=== PATIENT | male | born 1960 | race Caucasian/White ===

== ENCOUNTER 2021-09-06 19:00 | Observation (INO) | payer OTHER, SELFPAY ==
[2021-09-06] VITALS (12 sets, daily range): BP systolic 103–145; BP diastolic 79–85; PULSE 57–98; RESP 10–23; TEMP 36.7–37.2; O2SAT 94–98; BMI 29.7
--- NOTE | ~2021-09-06 | XR_ITS ---
EXAMINATION: XR chest 1V portable INDICATION: Midsternal chest pain TECHNIQUE: Portable AP chest at 1915 hours COMPARISON: 04/18/2005 FINDINGS: Cardiomegaly is noted. There are minimal airspace opacities of the lung bases. No pleural e ffusion or pneumothorax. Median sternotomy wires and mediastinal surgical clips are seen, likely from prior coronary artery bypass grafting. IMPRESSION: 1. Cardiomegaly. 2. Minimal airspace opacities of the lung bases, consistent with atelectasis versus pneumonia versus pulmonary edema. Reviewed, dictated and finalized at location F. IMPRESSION: 1. Cardiomegaly. 2. Minimal airspace opacities of the lung bases, consistent with atelectasis ve rsus pneumonia versus pulmonary edema.
--- NOTE | 2021-09-06 19:09 | ECG_ITS ---
Measurements Intervals [place] Rate: 84 P: MA: 0 QRS: -40 QRSD: 160 T: 132 QT: 379 QTc: 450 Interpretive Statements ATRIAL FIBRILLATION MARKED LEFT AXIS DEVIATION [QRS AXIS < -30] LEFT BUNDLE BRANCH BLOCK [120+ ms QRS DURATION, 80+ ms Q/S IN V1/V2, 85+ ms R IN I/aVL/V5/V6] NO PREVIOUS ECG AVAILABLE FOR COMPARISON Electronically Signed On 09-07-2021 7:51:09 CDT by Chuck Jefferson M.D.
[2021-09-06 19:39] LABS: Basophils Absolute Auto 0.1 K/mm3 (0.0-0.1); Basophils Percent Auto 0.6 % (0.2-1.2); Eosinophils Absolute Auto 0.3 K/mm3 (0-0.3); Eosinophils Percent Auto 3.2 % (0-4.4); Hematocrit 50.7 % (42.0-52.0); Hemoglobin 16.6 g/dL (14.0-18.0); Immature Granulocyte Absolute 0.03 K/mm3 (0.00-0.031); Immature Granulocyte Percent A 0.4 % (0-0.5); Lymphocytes Absolute Auto 2.12 K/mm3 (0.9-3.2); Mean Corpuscular HGB Conc 32.7 g/dl (32-36); Mean Corpuscular Hemoglobin 29.9 pg (26-34); Mean Corpuscular Volume 91.4 fl (80-100); Mean Platelet Volume 9.9 fl (7.4-10.4); Monocytes Absolute Auto 0.7 K/mm3 (0.1-0.6); Monocytes Percent Auto 9.4 % (2.6-8.5); Neutrophils Absolute Auto 4.7 K/mm3 (1.3-6.7); Neutrophils Percent Auto 59.4 % (45.5-73.1); Platelet Count Result 203 k/mm3 (150-375); Red Blood Count 5.55 M/mm3 (4.6-6.20); Red Cell Distribution Width 13.7 % (11.5-14.5); White Blood Count 7.8 K/mm3 (4.5-10.0)
[2021-09-06 19:49] LABS: INR 1.3; Prothrombin Time 15.3 Seconds (11.1-14.7)
--- NOTE | 2021-09-06 19:56 | ED.CHESTPAIN ---
HPI - Chest Pain General Chief Complaint: Chest Pain Stated Complaint: shortness of breath and chest discomfort Time Seen by Provider: 09/06/21 19:08 Source: RN notes reviewed History of Present Illness HPI narrative: Patient presents emergency department from home for chest pain. Patient states he has had pain over the anterior chest that began yesterday afternoon pain is located just to the right of the sternum and described as a pressure nature he states makes him feel mildly short of breath makes him feel like he cannot take a deep breath. He states nothing makes the pain better or worse he denies any fevers or chills abdominal pain nausea vomiting or any other symptoms. Patient does state he has a history of a CABG in 2014 he states he follows regularly with cardiology at [facility] has not had a cath since that time. States he has a history of being in A. fib in the past and is on Xarelto but states he is not normally in atrial fibrillation Related Data Allergies Allergy/AdvReac Type Severity Reaction Status Date / Time No Known Drug Allergies Allergy Unknown Other Unverified 09/06/21 19:27 Review of Systems Review of Systems: Gen.: Denies fevers or chills ENT: Denies congestion Respiratory: Reports shortness of breath CV: Reports chest pain GI: Denies abdominal pain nausea, emesis or diarrhea Musculoskeletal: Denies back pain or muscle pain Neuro: Denies numbness, tingling, weakness or focal weakness Skin: Denies rash Except as documented, all other systems reviewed and negative [facility] Past Medical History Medical History (Updated 09/06/21 @ 21:22 by Checo Nicholas DO) Atrial fibrillation Coronary artery disease Surgical History Surgical History (Updated 09/06/21 @ 21:20 by Checo Nicholas DO) Hx of CABG Social History Social History (Updated 09/06/21 @ 21:20 by Checo Nicholas DO) Smoking status: Never smoker Exam Narrative: APPEARANCE: No acute distress, nontoxic, resting in bed EYES: EOMI HEENT: Normocephalic, atraumatic, OMM RESPIRATORY: No respiratory distress Clear to auscultation bilaterally with no rhonchi wheezing or rales. CARDIOVASCULAR: Irregular irregular without murmurs rubs or gallops. ABDOMINAL: Soft, nontender, nondistended, no rebound or guarding MUSCULOSKELETAl: Moves all extremities. No clubbing, cyanosis or edema. NEURO: Awake and alert. Following commands, speech normal, no focal deficits SKIN:: Warm, dry. No rashes lesions or abrasions PSYCHIATRIC: Normal affect/mood, Course Course Emergency Course: Patient states pain is improved at this time. Discussed with Dr. Vazquez presentation work-up agrees with plan for admission at this time. Discussed the patient's history and is a patient is normally followed by cardiology at [place] plans for serial troponins rule out but does not feel cardiology consult is necessary at this time Discussed with patient and family results of workup and diagnosis. Discussed need for admission. Patient and family understand and agree to current treatment plan Vital Signs Vital signs: Vital Signs Temperature 98.9 F 09/06/21 19:04 Pulse Rate 88 09/06/21 19:04 Respiratory Rate 20 09/06/21 19:04 Blood Pressure 145/85 H 09/06/21 19:04 Pulse Oximetry 98 09/06/21 19:04 Temperature 98.9 F 09/06/21 19:04 Pulse Rate 91 09/06/21 21:07 Respiratory Rate 11 L 09/06/21 20:47 Blood Pressure 103/85 09/06/21 20:46 Pulse Oximetry 96 09/06/21 20:47 MDM - Chest Pain Lab Data Result diagrams: 09/06/21 19:29 09/06/21 19:29 Labs: Lab Results 09/06/21 09/06/21 09/06/21 Range/Units 19:29 19:29 19:29 WBC 7.8 (4.5-10.0) K/mm3 RBC 5.55 (4.6-6.20) M/mm3 Hgb 16.6 (14.0-18.0) g/dL Hct 50.7 (42.0-52.0) % MCV 91.4 (80-100) fl MCH 29.9 (26-34) pg MCHC 32.7 (32-36) g/dl RDW 13.7 (11.5-14.5) % Plt Count 203 (150-375) k/mm3 MPV 9.9
[2021-09-06 20:47] LABS: Alanine Aminotransferase 47 U/L (6-50); Albumin Level 4.6 g/dL (3.5-5.1); Alkaline Phosphatase 63 U/L (38-126); Anion Gap 8 mmol/L (8-16); Aspartate Amino Transferase 33 U/L (17-59); Bilirubin,Total 0.6 mg/dL (0.2-1.3); Blood Urea Nitrogen 20 mg/dL (9-20); Calcium 8.8 mg/dL (8.4-10.2); Carbon Dioxide 29 mmol/L (22-30); Chloride 103 mmol/L (98-107); Estimated CRCL calculation 86 ml/min; Estimated Glomerular Filt Rate > 60; Glucose 151 mg/dL (65-110); Lipase 63 U/L (23-300); Sodium 140 mmol/L (137-145)
[2021-09-06 20:58] LABS: NT Pro B Type Natriuretic Pept 852 pg/mL (5-100); Troponin I < 0.012 ng/mL (0.000-0.034)
--- NOTE | 2021-09-06 21:18 | PM.IMHP ---
H&P: HPI History of Present Illness Date/Time: 09/06/21 21:18 Chief Complaint: Shortness of breath Narrative: This is a 61-year-old male with past medical history significant for aortic valve replacement for bioprosthetic valve, hypertension, atrial fibrillation. Patient presents to the emergency room due to fatigue, shortness of breath, has been his usual state of health up until these denies any PND, orthopnea, leg swelling, no palpitations, no dizziness, no lightheadedness, no syncope, no near syncope, no nausea, no vomiting, no diarrhea, no cough, no sputum production. Preliminary workup was significant for atrial fibrillation, according to patient he had been on sinus rhythm. Has been admitted for further evaluation, management and treatment. Review of Systems Review of Systems: Fatigue, shortness of breath. Constitutional: Constitutional: Denies chills, Reports fatigue, Denies fever(s), Reports lethargy, Denies night sweats and Denies weakness Eyes: Eyes: Denies change in vision ENT: Denies dysphagia, Denies vertigo, Denies dizziness, Denies nasal congestion, Denies nasal discharge, Denies neck pain, Denies odynophagia and Denies disequilibrium Cardiovascular: Cardiovascular: Reports chest pain, Denies syncope, Denies pedal edema, Denies irregular heart rhythm, Denies claudication, Denies lightheadedness, Denies radiating jaw, neck or arm pain, Denies palpitations, Reports dyspnea and Reports dyspnea on exertion Respiratory: Respiratory: Denies cough and Denies excessive phlegm production Gastrointestinal: Gastrointestinal: Denies abdominal pain, Denies dyspepsia, Denies heartburn, Denies diarrhea and Denies loose stools Genitourinary: Genitourinary: Denies dysuria Musculoskeletal: Musculoskeletal: Denies back pain and Denies joint swelling Integumentary/Breasts: Skin/Breast: Denies rash Psychiatric: Psychiatric: Reports no additional psychiatric complaints and Reports as per HPI Endocrine: Endocrine: Denies cold intolerance, Denies excessive sweating, Reports fatigue, Denies flushing, Denies heat intolerance, Denies polyphagia, Denies polydipsia and Denies palpitations PMFSH Past Medical History Medical History (Updated 09/06/21 @ 21:22 by Checo Nicholas DO) Atrial fibrillation Coronary artery disease Surgical History Surgical History (Updated 09/07/21 @ 03:17 by Demetris Rea MD) Hx of CABG Family History Family History (Updated 09/06/21 @ 22:48 by Audrey Sharma, RN) Sibling Acute myocardial infarction Lung cancer Coronary atherosclerosis of artery bypass graft Father History of blood clots Cerebrovascular accident Coronary atherosclerosis of artery bypass graft Mother Leukemia Social History Social History (Updated 09/06/21 @ 21:20 by Checo Nicholas DO) Smoking status: Former smoker Tobacco type: cigars Second hand tobacco smoke exposure: Yes Alcohol intake: former Substance use: never Spiritual care concerns: Yes (confucianist) Meds Home Medications and Allergies Home Medications Medication Instructions Recorded Confirmed Type amlodipine 10 mg tablet 1 tablet PO DAILY 09/06/21 09/06/21 History atenolol 50 mg tablet 1 tablet PO DAILY 09/06/21 09/06/21 History atorvastatin 80 mg tablet 1 tablet PO DAILY 09/06/21 09/06/21 History fenofibrate micronized 200 mg 1 cap PO DAILY 09/06/21 09/06/21 History capsule hydrocodone 10 mg-acetaminophen 1 tablet PO Q6H PRN Pain (Scale 09/06/21 09/06/21 History 325 mg tablet Score 7-10) rivaroxaban 20 mg tablet (Xarelto) 1 tablet PO DAILY 09/06/21 09/06/21 History testosterone cypionate 200 mg/mL 200 mg IM MONTHLY 09/06/21 09/06/21 History intramuscular oil vortioxetine 20 mg tablet 1 tablet PO DAILY 09/06/21 09/06/21 History (Trintellix) zolpidem 10 mg tablet 0.5 - 1 tablet PO HS PRN Sleep 09/06/21 09/06/21 History Allergies Allergy/AdvReac Type Severity Reaction Status Date / Time No Known Drug
--- NOTE | 2021-09-06 22:40 | PC.NURSE ---
This patient, Adrian Bustillos, was admitted to IMU Room 202-01 in 09/06/212231. Patient/family oriented to hospital policies and general routines including ID bracelet, bed and alarms, visiting hours, pain management, procedures, bathroom and other care routines, personal items, smoking policy, room service/diet, and visiting hours. Information on how to activate the Rapid Response Team has been discussed. Patient/Family are encouraged to report perceived risks to care and to ask questions if they do not understand what they are told or what they should do.
[2021-09-06 23:44] LABS: Troponin I < 0.012 ng/mL (0.000-0.034)
[2021-09-07] VITALS (8 sets, daily range): BP systolic 103–125; BP diastolic 60–86; PULSE 78–90; RESP 16–18; TEMP 36.4–36.7; O2SAT 97–98
[2021-09-07] MEDS: HYDROcodone/acetaminophen (*CRX) 10-325 MG TABLET 1 TAB PO (00:43)
[2021-09-07] MEDS: ZOLPIDEM TARTRATE (*CRX) 5 MG TABLET 10 MG PO (00:43)
[2021-09-07 02:00] LABS: Troponin I < 0.012 ng/mL (0.000-0.034)
[2021-09-07 05:20] LABS: Basophils Percent Auto 0.4 % (0.2-1.2); Eosinophils Absolute Auto 0.2 K/mm3 (0-0.3); Eosinophils Percent Auto 3.1 % (0-4.4); Hematocrit 49.8 % (42.0-52.0); Hemoglobin 16.2 g/dL (14.0-18.0); Immature Granulocyte Absolute 0.03 K/mm3 (0.00-0.031); Immature Granulocyte Percent A 0.4 % (0-0.5); Lymphocytes Absolute Auto 2.07 K/mm3 (0.9-3.2); Lymphocytes Percent Auto 27.6 % (18.3-44.2); Mean Corpuscular HGB Conc 32.5 g/dl (32-36); Mean Corpuscular Hemoglobin 30.1 pg (26-34); Mean Corpuscular Volume 92.4 fl (80-100); Mean Platelet Volume 9.9 fl (7.4-10.4); Monocytes Absolute Auto 0.7 K/mm3 (0.1-0.6); Monocytes Percent Auto 9.5 % (2.6-8.5); Neutrophils Absolute Auto 4.4 K/mm3 (1.3-6.7); Platelet Count Result 186 k/mm3 (150-375); Red Blood Count 5.39 M/mm3 (4.6-6.20); Red Cell Distribution Width 13.7 % (11.5-14.5); White Blood Count 7.5 K/mm3 (4.5-10.0)
[2021-09-07 05:27] LABS: Anion Gap 7 mmol/L (8-16); Blood Urea Nitrogen 20 mg/dL (9-20); Calcium 8.6 mg/dL (8.4-10.2); Carbon Dioxide 26 mmol/L (22-30); Chloride 107 mmol/L (98-107); Estimated CRCL calculation 82 ml/min; Estimated Glomerular Filt Rate > 60; Glucose 100 mg/dL (65-110); Potassium 4.1 mmol/L (3.4-5.0); Sodium 140 mmol/L (137-145)
[2021-09-07] MEDS: amLODIPine BESYLATE 5 MG TABLET 10 MG PO (09:23)
[2021-09-07] MEDS: ATORVASTATIN 40 MG TABLET 80 MG PO (09:23)
[2021-09-07] MEDS: atenoloL 50 MG TABLET PO (09:23)
--- NOTE | 2021-09-07 12:07 | PM.CNCAR ---
Assessment and Plan Assessment and plan (1) Atrial fibrillation: Code(s): I48.91 - Unspecified atrial fibrillation Status: Acute Plan This is a 61-year-old man with history of coronary artery disease valvular heart disease and paroxysmal atrial fib as detailed above. 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 He has been found to be back in atrial fibrillation which is either asymptomatic or minimally symptomatic from what I can tell. He has been compliant with his Xarelto. His rate is well controlled. His electrocardiogram is unchanged in comparison with tracings in the chart from October of 2019 at [facility] when he had his last cardioversion procedure performed. At this point I think he can be discharged for follow-up with his established resource efficiency manager at [facility]. Obviously the decision would be to accept chronic atrial fibrillation, initiate antiarrhythmic therapy and try to cardiovert him on medical therapy or consider electrophysiology consultation. I discussed all of these options with the patient and his and they are thankful for this conversation. They would like to contact his established physician at [facility] on Thursday and arrange for shorter interval follow-up to assist with making these choices. There is no other cardiac reason he needs to be kept in the hospital here. I will sign off at this time Chuck Jefferson MD [facility] History of Present Illness History of Present Illness Consult date/time: 09/07/21 12:07 Consult reason: atrial fibrillation Reason For Visit: Chest Pain, A Fib Narrative: This is a 61-year-old man who is not known to me prior to this but follows with resource efficiency manager at [facility], Dr. Guzman who has a history of valvular heart disease coronary heart disease and atrial fibrillation. The patient states he was in his usual state of fairly good health when in the last couple of days he has noticed that he he thinks his breathing is a little more difficult than it has been in the past. He did really make much out of this. 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 He came into the emergency room to have these complaints evaluated. His EKG shows atrial fibrillation with controlled ventricular response and a left bundle branch block. He was admitted for further evaluation and management. His troponin levels are negative x3 sets. He feels relatively well this morning and would like to be discharged. I was consulted to see him to provide advice regarding these issues. The patient has a history of aortic valve disease with bicuspid aortic valve with severe aortic stenosis. He received a 25 mm magna ease bioprosthetic valve by Dr. Calix in October of 2014. He also has a history of paroxysmal atrial fibrillation. He was cardioverted electrically at [facility] in October of 2019. His electrocardiogram at that time showed atrial fibrillation with a left bundle branch block and looks essentially identical to the current ECG. He has not been maintained on any antiarrhythmic drug therapy but he has been maintained on anticoagulation with Xarelto. He has a history of moderate coronary artery disease with a [id number] lesion in the proximal LAD at the time of his aortic valve replacement. He follows regularly with his resource efficiency manager at [facility] as well as with his primary care physician in [place]. He does not describe any history of anginal-type chest pain orthopnea PND or accumulating edema. Review of Systems Constitutional: Constitutional: Reports no additional constitutional complaints Eyes: Eyes: Reports no additional eye complaints ENT: Reports system reviewed and no additional complaints, except as documented Cardiovascular: Car
--- NOTE | 2021-09-07 12:34 | PM.DS ---
DS: Admitting Diagnosis Discharge Date 09/07/2021 Admitting Diagnosis shortness of breath DS: Discharge Diagnosis Discharge Diagnosis (1) Chest pain: Code(s): R07.9 - Chest pain, unspecified Status: Acute Assessment and Plan: Will place in telemetry unit Serial cardiac enzymes Patient usually follows up at [facility] (2) Atrial fibrillation: Code(s): I48.91 - Unspecified atrial fibrillation Status: Acute Assessment and Plan: Rate controlled and anticoagulated continue to monitor (3) H/O aortic valve replacement with porcine valve: Code(s): Z95.3 - Presence of xenogenic heart valve Status: Acute Assessment and Plan: Unchanged DS: Summary Hospital Course Reason for hospitalization: Shortness of breath Narrative: This is a 61-year-old male with past medical history significant for aortic valve replacement for bioprosthetic valve, hypertension, atrial fibrillation.? Patient presents to the emergency room due to fatigue, shortness of breath, has been his usual state of health up until these denies any PND, orthopnea, leg swelling, no palpitations, no dizziness, no lightheadedness, no syncope, no near syncope, no nausea, no vomiting, no diarrhea, no cough, no sputum production.? Preliminary workup was significant for atrial fibrillation, according to patient he had been on sinus rhythm.? Has been admitted for further evaluation, management and treatment. Hospital Course: Patient was seen by open die inspector and review EKG and his chart from [facility], patient cardiac rhythm, patient HR is controlled and has minimal symptoms, he is clinically stable, will discharge patient to follow up with open die inspector and bridge engineer, Time Spent with Patient Time attestation: Total time spent providing and/or coordinating discharge services: DS: Data Data Completed and Pending Labs on day of discharge: Labs from last 24 hours 09/07/21 09/07/21 09/07/21 04:31 04:31 01:27 WBC 7.5 RBC 5.39 Hgb 16.2 Hct 49.8 MCV 92.4 MCH 30.1 MCHC 32.5 RDW 13.7 Plt Count 186 MPV 9.9 Immature Gran % (Auto) 0.4 Neut % (Auto) 59.0 Lymph % (Auto) 27.6 [place] % (Auto) 9.5 H Eos % (Auto) 3.1 Baso % (Auto) 0.4 Lymph # (Auto) 2.07 [place] # (Auto) 0.7 H Eos # (Auto) 0.2 Baso # (Auto) 0.0 Abs Immat Gran (auto) 0.03 Absolute Neuts (auto) 4.4 Absolute Nucleated RBC 0.0 Nucleated RBC % 0.0 PT INR APTT Sodium 140 Potassium 4.1 Chloride 107 Carbon Dioxide 26 Anion Gap 7 L BUN 20 Creatinine 0.80 Estim Creat Clear Calc 82 Estimated GFR > 60 Glucose 100 Calcium 8.6 Total Bilirubin AST ALT Alkaline Phosphatase Troponin I < 0.012 NT-Pro-B Natriuret Pep Total Protein Albumin Lipase 09/06/21 09/06/21 09/06/21 23:12 19:29 19:29 WBC RBC Hgb Hct MCV MCH MCHC RDW Plt Count MPV Immature Gran % (Auto) Neut % (Auto) Lymph % (Auto) [place] % (Auto) Eos % (Auto) Baso % (Auto) Lymph # (Auto) [place] # (Auto) Eos # (Auto) Baso # (Auto) Abs Immat Gran (auto) Absolute Neuts (auto) Absolute Nucleated RBC Nucleated RBC % PT 15.3 H INR 1.3 APTT 30.0 Sodium 140 Potassium 4.0 Chloride 103 Carbon Dioxide 29 Anion Gap 8 BUN 20 Creatinine 0.90 Estim Creat Clear Calc 86 Estimated GFR > 60 Glucose 151 H Calcium 8.8 Total Bilirubin 0.6 AST 33 ALT 47 Alkaline Phosphatase 63 Troponin I < 0.012 < 0.012 NT-Pro-B Natriuret Pep 852 H Total Protein 7.0 Albumin 4.6 Lipase 63 09/06/21 19:29 WBC 7.8 RBC 5.55 Hgb 16.6 Hct 50.7 MCV 91.4 MCH 29.9 MCHC 32.7 RDW 13.7 Plt Count 203 MPV 9.9 Immature Gran % (Auto) 0.4 Neut % (Auto) 59.4 Lymph % (Auto) 27.0 [place] % (Auto) 9.4 H
== END 2021-09-07 13:24 | disposition home or self-care (01) ==
LOC: ANHED 21:22 → ANHIMU 22:27
PROVIDERS: Admitting Provider Internal Medicine; Emergency Provider Emergency Medicine; Visit Provider Family Medicine
DX: R07.89 Other chest pain (principal); R06.02 Shortness of breath; I48.91 Unspecified atrial fibrillation; I25.10 Atherosclerotic heart disease of native coronary artery without angina pectoris; I10 Essential (primary) hypertension; Z95.5 Presence of coronary angioplasty implant and graft; Z87.891 Personal history of nicotine dependence; Z95.3 Presence of xenogenic heart valve
CPT/HCPCS: 36415; 71045; 80048; 80053; 83690; 83880; 84484; 85025; 85610; 85730; 93005; 99285; A9270; G0378

== ENCOUNTER 2025-01-18 10:06 | Emergency (ER) | payer OTHER, SELFPAY ==
--- OUTSIDE RECORDS SUMMARY | 2004-07-26 03:45 | XMS_ITS | Continuity of Care Document ---
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 [address] , [address], [place], [address], [place]. tel:[phone] Family History Family Member Type Diagnosis Age At Onset No Information Payers Payer name Insurance type Covered democrat ID Authoriza tionel(s) [facility] [id number] Written Ref feral Social History Type Description Quantity Date Captured Comments Sex Male Smoking Status No Information Chief Complaint And Reason For Visit No Information Reason For Referral Reason For Referral No Information History Of Present Illness Encounter Date Complaint History Of Prese nt Illness No Information Functional Status Date Functional Assessmen t No Information Instructions Date Instruction Additional Infor mation No Information Assessments Type Assessment Date No Information Patient Care Teams Name Effective Dates (start - stop) Status Members No Information
--- OUTSIDE RECORDS SUMMARY | 2004-07-26 03:45 | XMS_ITS | Continuity of Care Document ---
Author Organization [facility] Address [address] [place] [address] [address] [place] [address] Phone Care Team Providers Care Supervisor Molding Name Role Phone Alessandra Clement Unavailable Unavailable Advance Directives Directive Yes / No Effective Date File Name No Information Encounters Encounter Description Practice Location Reason(s) For Visit Diagnoses Date Provider Providers Copied on Encounter [facility], [address], [place], [place], [id number], [place] tel:[phone] [facility] No Information [address] Racquel Aparicio. [address] , [address], [place], [address], [place]. tel:[phone] Family History Family Member Type Diagnosis Age At Onset No Information Payers Payer name Insurance type Covered constitution party ID Authoriza tionel(s) [facility] [id number] Written Ref feral Social History Type Description [...]
--- NOTE | ~2025-01-18 | XR_ITS ---
EXAMINATION: XR chest 2V DATE: 01/18/2025 13:05 INDICATION: Weakness. Leukocytosis. TECHNIQUE: frontal and lateral views of the chest were obtained. COMPARISON: Chest radiograph dated 09/06/2021 FINDINGS: The lungs are clear with no focal airspace opacities, pulmonary edema, pleural effusion or pneumothorax. The cardiomediastinal silhouette is normal. Median sternotomy wires and aortic valve repair. Reverse left total shoulder arthroplasty. IMPRESSION: 1. No acute cardiopulmonary disease. Reviewed, dictated and finalized at location A. TAL ADVERTISING ANALYST
[2025-01-18 10:09] VITALS: BP 128/73; PULSE 94; RESP 16; TEMP 36.4; O2SAT 96
--- NOTE | 2025-01-18 11:34 | ECG_ITS ---
Test Date: 2025-01-18 12:59:20 Measurements Intervals [place] Rate: 121 P: 0 [place]: 0 QRS: -60 QRSD: 162 T: 93 QT: 360 QTc: 512 Interpretive Statements ATRIAL FLUTTER/TACHYCARDIA WITH RAPID VENTRICULAR RESPONSE MARKED LEFT AXIS DEVIATION [QRS AXIS < -30] INTRAVENTRICULAR CONDUCTION DELAY [130+ ms QRS DURATION] ABNORMAL ECG No previous ECG available for comparison Electronically Signed On 01-18-2025 14:43:52 PREPARED FOODS SUPERVISOR by Robert Palacios M.D.
--- NOTE | 2025-01-18 11:34 | ED.WEAKNESS ---
HPI - Weakness General Chief complaint: Weakness Stated complaint: weakness Time Seen by Provider: 01/18/25 11:33 Source: patient, family (Spouse) and RN notes reviewed Mode of arrival: EMS Limitations: no limitations History of Present Illness HPI Narrative: Patient presents with report of generalized weakness. He denies any unilateral nature to this. He was told his white blood cell count was elevated at 14.8. These were obtained on preprocedure labs ordered by his surgical garment assembly supervisor Dr. Esparza through [facility] as he is pending a left heart catheterization next Thursday. He reports being fatigued with increased sleep over the past 3 weeks. Denies any sick contacts. He notes that he has been having diarrhea with decreased p.o. intake and weight loss of 20 lb. No recent travel. No recent antibiotics. He is on apixaban for history of valve replacement and he previously had atrial fibrillation although underwent ablation procedure. Denies any chest pain, shortness of breath, or cough. He has been having night sweats. No history of cancer. Denies edema. Has a PCP in [place]. Related Data Home Medications ?Medication ?Instructions ?Recorded ?Confirmed ?Last Taken ?Type amlodipine 10 mg tablet 1 tablet PO DAILY 09/06/21 11/04/24 Unknown History atorvastatin 80 mg tablet 1 tablet PO DAILY 09/06/21 11/04/24 Unknown History hydrocodone 10 mg-acetaminophen 1 tablet PO Q6H PRN Pain (Scale 09/06/21 11/04/24 Unknown History 325 mg tablet Score 7-10) rivaroxaban 20 mg tablet (Xarelto) 1 tablet PO DAILY 09/06/21 11/04/24 Unknown History testosterone cypionate 200 mg/mL 200 mg IM MONTHLY 09/06/21 11/04/24 08/24/21 History intramuscular oil zolpidem 10 mg tablet 0.5 - 1 tablet PO HS PRN Sleep 09/06/21 11/04/24 Unknown History escitalopram oxalate 10 mg tablet 10 mg PO DAILY 10/20/24 11/04/24 Unknown History escitalopram oxalate 10 mg tablet mg PO 10/20/24 11/04/24 Unknown History ezetimibe 10 mg tablet mg PO 10/20/24 11/04/24 Unknown History syringe with needle, safety 3 mL #100 ea 10/20/24 11/04/24 Unknown History 23 gauge x 1 (BD Integra Syringe) Allergies Allergy/AdvReac Type Severity Reaction Status Date / Time No Known Drug Allergies Allergy Unknown Other Verified 01/18/25 10:12 [facility] Past Medical History Medical History (Updated 01/18/25 @ 19:54 by Estefania Sellers MD) Hypertension Chronic anticoagulation Congenital dysplasia of cardiac valve Atrial fibrillation Coronary artery disease Surgical History Surgical History History of arthroplasty of left shoulder H/O aortic valve replacement with porcine valve History of colonoscopy History of cardiac ablation Hx of CABG Family History Family History (Updated 09/06/21 @ 22:48 by Audrey Sharma RN) Sibling Acute myocardial infarction Lung cancer Coronary atherosclerosis of artery bypass graft Father History of blood clots Cerebrovascular accident Coronary atherosclerosis of artery bypass graft Mother Leukemia Social History Social History (Updated 01/18/25 @ 16:59 by Estefania Sellers MD) Tobacco type: cigars Second hand tobacco smoke exposure: Yes Alcohol intake: former Substance use: never Occupation/Education: retired Additional occupation/education comments: disability Spiritual care concerns: Yes (congregational) Exam Narrative: GENERAL: Well-appearing, well-nourished, and in no acute distress. HEAD: Normocephalic, atraumatic. EYES: Non injected, non icteric ENT: Nares clear, no rhinorrhea or epistaxis. Gross auditory acuity intact. NECK: Supple. No meningismus. CHEST: Speaking in full sentences. No respiratory distress. HEART: Initially normal rate ABDOMEN: Soft, nondistended. No rigidity or guarding. Not peritoneal EXTREMITIES: Normal range of motion. No lower extremity edema. SKIN: Warm, dry, no rash. NEURO: No focal deficits. Alert and oriented. Answering questions. Following commands. Normal speech without aphasia or dysarthria. PSYCH: Normal mood and affect. Course Vital Signs Vital signs: Vital Signs Temperature 97.6 F 01/18/25 10:09 Pulse Rate 94 01/18/25 10:09 Respiratory Rate 16 01/18/25 10:09 Blood Pressure 128/73 01/18/25 10:09 Pulse Oximetry 96 01/18/25 10:09 Temperature 97.6 F 01/18/25 10:09 Pulse Rate 89 01/18/25 18:13 Respiratory Rate 18 01/18/25 18:13 Blood Pressure 93/72 L 01/18/25 18:13 Pulse Oximetry 95 01/18/25 18:13 MDM - Weakness MDM Narrative Medical decision making narrative: Patient presents with report of generalized weakness and fatigue with increased sleep over the last 3 weeks. He was told that his preprocedure labs showed a white blood cell count of 14.8. These were obtained as he is due to undergo cardiac catheterization next Thursday. Structural Test Engineer Dr Esparza through [facility]. In the emergency department they are afebrile with vital signs within normal limits. An IV was placed and the patient was put on cardiac and pulse oximetry monitors. ECG showed an irregularly irregular narrow-complex tachycardia without associated P-waves, consistent with the diagnosis of Aflutter/tachycardiawith RVR. Patient hemodynamically stable thus early priority in management was to slow the ventricular rate using diltiazem , iniitlally 15 mg Rate improves with this, to 90bpm. Repeat EKG ordered. Remains rate controlled, Afib. BNP mildly elevated but stable from previous and <900 which would be the reference range of the assay for patient's age. UA w/o signs of infection Viral swab negative. Ambulates well per RN. I was notified that the RN who ambulated him had appreciated a lump/mass (?) at his back/shoulder during this. I reassessed at bedside and this is not present on my exam. No pain or tenderness either. He has remained rate controlled for hours. He notes that he had missed some doses of his BP medication while not feeling well. Has been taking his anticoagulation. Diarrhea has been going on for months per patient though unable to produce stool sample. He denies any abdominal pain. Has been eating small snack with evening anticoagulation but decreased appetite. Last colonoscopy was a few years ago, <5;, told he was fine for routine follow up. My differential diagnosis for chronic diarrhea includes, but not limited to: Infectious (giardia, E histolytica, C difficile), medications (antibiotics, antacids, lactulose, sorbitol, chemotherapy, colchicine, gold), inflammatory etiology (such as IBD, radiation enteritis, ischemic colitis, diverticulitis). Also possible are malabsorption issues due to bile salt deficiency (cirrhosis, cholestasis, ileal disease, bacterial overgrowth), pancreatic insufficiency, mucosal abnormalities (celiac sprue, tropical sprue, Whipple disease), or lactose intolerance. They are also secretory causes such as hormonal (VIP, carcinoid tumor, medullary cancer of thyroid, a linear Dickson, glucagon, thyroxine), laxative abuse, neoplasm; finally motility issues may be the cause (IBS, scleroderma, hyperthyroidism, diabetic autonomic neuropathy). Patient has a leukocytosis. He also has a normocytic anemia which appears new and represents a drop from 16 previously (though 2021 was previous). TSH abnormal; T4/T3 ordered. Elevated ALT, isolated. Hyponatremia which is new. Potassium and magnesium are within normal limits. CPK normal. T4 normal. Suspect subclinical hyperthyroidism (though T3 toxicosis considered as well) . No chest pain, shortness of breath, or abdominal pain. I do not currently have a clear indication for CT scan of chest or abdomen/pelvis. Discussed with patient deferring this and he is in agreement. He is sitting upright in bed on subsequent repeat assessments and appears well, non-toxic. Discussed that he had been in an atrial arrhythmia with RVR. He reports that he had not been ever since the ablation but has upcoming appointment with cardiology. He is already on amlodipine and anticoagulation. Advised he continue taking these. Also advised that if diarrhea persisted, follow up with GI (either his or given referral). Noted that his electrolytes were generally fine today but that is a concern if diarrhea persists; noted he could drink pedialyte/gatorade. RN notes the lump/mass is now apparent again; went to bedside and there is a soft mass-like structure overlying left scapula, not quite obviously cystic, possibly lipoma although not quite the same texture. Offered CT imaging at this time given his symptoms and now that we are waiting on C diff to result as he was able to produce a stool sample just before discharge. He refuses/declines imaging at this time. States he was told he had a lipoma before and will see any one of his other doctors for this if it returns/gets worse. C diff negative. Stable for Discharge. Differential Diagnosis Differential diagnosis: Likely acute myocardial infarction, anemia, hypoglycemia, hypothyroidism, rhabdomyolysis, sepsis, dehydration and other (PNA; atrial fibrillation; heart failure; acute viral syndrome; malignancy) Lab Data Attestation: I reviewed the patient's lab results. 01/18/25 13:09 01/18/25 13:09 Labs: Lab Results 01/18/25 01/18/25 01/18/25 Range/Units 13:09 14:27 14:39 WBC 14.9 H (4.5-10.0) K/mm3 RBC 4.61 (4.6-6.20) M/mm3 Hgb 13.1 L D (14.0-18.0) g/dL Hct 38.7 L (42.0-52.0) % MCV 83.9 (80-100) fl MCH 28.4 (26-34) pg MCHC 33.9 (32-36) g/dl RDW 14.2 (11.5-14.5) % Plt Count 239 (150-375) k/mm3 MPV 9.4 (7.4-10.4) fl Immature Gran % (Auto) 0.4 (0-0.5) % Neut % (Auto) 80.4 H (45.5-73.1) % Lymph % (Auto) 9.9 L (18.3-44.2) % Crane % (Auto) 9.1 H (2.6-8.5) % Eos % (Auto) 0.1 (0-4.4) % Baso % (Auto) 0.1 L (0.2-1.2) % Lymph # (Auto) 1.47 (0.9-3.2) K/mm3 Crane # (Auto) 1.4 H (0.1-0.6) K/mm3 Eos # (Auto) 0.0 (0-0.3) K/mm3 Baso # (Auto) 0.0 (0.0-0.1) K/mm3 Abs Immat Gran (auto) 0.06 H (0.00-0.031) K/mm3 Absolute Neuts (auto) 12.0 H (1.3-6.7) K/mm3 Absolute Nucleated RBC 0.000 (0.0-0.012) K/mm3 Nucleated RBC % 0.0 (0.0-0.2) % PT 15.6 H (11.1-14.7) Seconds INR 1.2 APTT 30.6 (22.3-36.8) Seconds Sodium 130 L (137-145) mmol/L Potassium 3.9 (3.4-5.0) mmol/L Chloride 100 (98-107) mmol/L Carbon Dioxide 20 L (22-30) mmol/L Anion Gap 10 (4-12) mmol/L BUN 20 (9-20) mg/dL Creatinine 0.51 L (0.7-1.3) mg/dL Estim Creat Clear Calc 137 ml/min Estimated GFR > 60 (59 - ) Glucose 132 H (65-110) mg/dL Calcium 8.4 (8.4-10.2) mg/dL Magnesium 2.1 (1.6-2.3) mg/dL Total Bilirubin 1.1 (0.2-1.3) mg/dL AST 44 (17-59) U/L ALT 55 H (6-50) U/L Alkaline Phosphatase 93 (38-126) U/L Total Creatine Kinase 59 (55-170) U/L Troponin I 0.023 (0.000-0.034) ng/mL NT-Pro-B Natriuret Pep 850 H (19.9-100) pg/mL Total Protein 6.8 (6.3-8.2) g/dL Albumin 3.6 (3.5-5.1) g/dL TSH 0.292 L (0.465-4.680) uIU/mL Free T4 1.24 (0.78-2.19) ng/dL Free T3 pg/mL Pending Urine Color Dark yellow (Yellow) Urine Appearance Clear (Clear) Urine pH 5.5 (5.0-9.0) Ur Specific Belle 1.024 (1.001-1.035) Urine Protein 1+ H (Negative) mg/dL Urine Glucose (UA) Negative (Negative) mg/dL Urine Ketones 1+ H (Negative) mg/dL Ur Blood (Man) Negative (Negative) Urine Nitrate Negative (Negative) Urine Bilirubin Negative (Negative) Urine Urobilinogen 1.0 (<2.0) mg/dL Add Ur Microanalysis Reviewed Leukocyte Esterase Rfl Negative (Negative) JORDYN/UL Urine RBC 0-2 (0-2) /hpf Urine WBC 0-5 (0-3) /hpf Ur Squamous Epith Cells None seen (Few) /hpf Urine Bacteria None seen /hpf Urine Casts 0-2 Urine Mucus Present /lpf C. difficile (PCR) (NEGATIVE) Influenza A (RT-PCR) Negative (Negative) Influenza B (RT-PCR) Negative (Negative) RSV (RT-PCR) Negative (Negative) SARS-CoV-2 RNA (RT-PCR) Negative (Negative) 01/18/25 Range/Units 17:08 WBC (4.5-10.0) K/mm3 RBC (4.6-6.20) M/mm3 Hgb (14.0-18.0) g/dL Hct (42.0-52.0) % MCV (80-100) fl MCH (26-34) pg MCHC (32-36) g/dl RDW (11.5-14.5) % Plt Count (150-375) k/mm3 MPV (7.4-10.4) fl Immature Gran % (Auto) (0-0.5) % Neut % (Auto) (45.5-73.1) % Lymph % (Auto) (18.3-44.2) % Crane % (Auto) (2.6-8.5) % Eos % (Auto) (0-4.4) % Baso % (Auto) (0.2-1.2) % Lymph # (Auto) (0.9-3.2) K/mm3 Crane # (Auto) (0.1-0.6) K/mm3 Eos # (Auto) (0-0.3) K/mm3 Baso # (Auto) (0.0-0.1) K/mm3 Abs Immat Gran (auto) (0.00-0.031) K/mm3 Absolute Neuts (auto) (1.3-6.7) K/mm3 Absolute Nucleated RBC (0.0-0.012) K/mm3 Nucleated RBC % (0.0-0.2) % PT (11.1-14.7) Seconds INR APTT (22.3-36.8) Seconds Sodium (137-145) mmol/L Potassium (3.4-5.0) mmol/L Chloride (98-107) mmol/L Carbon Dioxide (22-30) mmol/L Anion Gap (4-12) mmol/L BUN (9-20) mg/dL Creatinine (0.7-1.3) mg/dL Estim Creat Clear Calc ml/min Estimated GFR (59 - ) Glucose (65-110) mg/dL Calcium (8.4-10.2) mg/dL Magnesium (1.6-2.3) mg/dL Total Bilirubin (0.2-1.3) mg/dL AST (17-59) U/L ALT (6-50) U/L Alkaline Phosphatase (38-126) U/L Total Creatine Kinase (55-170) U/L Troponin I (0.000-0.034) ng/mL NT-Pro-B Natriuret Pep (19.9-100) pg/mL Total Protein (6.3-8.2) g/dL Albumin (3.5-5.1) g/dL TSH (0.465-4.680) uIU/mL Free T4 (0.78-2.19) ng/dL Free T3 pg/mL Urine Color (Yellow) Urine Appearance (Clear) Urine pH (5.0-9.0) Ur Specific Belle (1.001-1.035) Urine Protein (Negative) mg/dL Urine Glucose (UA) (Negative) mg/dL Urine Ketones (Negative) mg/dL Ur Blood (Man) (Negative) Urine Nitrate (Negative) Urine Bilirubin (Negative) Urine Urobilinogen (<2.0) mg/dL Add Ur Microanalysis Leukocyte Esterase Rfl (Negative) JRODYN/UL Urine RBC (0-2) /hpf Urine WBC (0-3) /hpf Ur Squamous Epith Cells (Few) /hpf Urine Bacteria /hpf Urine Casts Urine Mucus /lpf C. difficile (PCR) Negative (NEGATIVE) Influenza A (RT-PCR) (Negative) Influenza B (RT-PCR) (Negative) RSV (RT-PCR) (Negative) SARS-CoV-2 RNA (RT-PCR) (Negative) Imaging Data Radiologist's impression: CXR interpretation during IT downtime: No acute CP disease. Aortic valve & L shoulder arthroplasty. Impressions Chest X-Ray 01/18/25 13:11 IMPRESSION: 1. No acute cardiopulmonary disease. ECG Data EKG #1: Attestation: I personally reviewed and interpreted this ECG as follows: ECG completion date: 01/18/25 ECG completion time: 12:59 Interpretation: Atrial flutter/tachycardia with rapid ventricular response at a rate of 121 beats per minute. QRS 162. QT/QTC 360/432. Poor R-wave progression across the precordial leads. No T-wave inversion. Intraventricular conduction delay. EKG #2: Attestation: I personally reviewed and interpreted this ECG as follows: ECG completion date: 01/18/25 ECG completion time: 15:10 Interpretation: Afib 94bpm. Marked left axis deviation. Left bundle-branch block. Discharge Plan Discharge Clinical Impression: Atrial flutter with rapid ventricular response, Generalized weakness, Leukocytosis, Normocytic anemia, Elevated ALT measurement, Hyponatremia, Chronic diarrhea, Atrial fibrillation Patient Disposition: Home Condition: Stable Instructions: Antibiotic Form, Atrial Flutter (ED), A-fib (Atrial Fibrillation) (ED), Hyponatremia (ED), Chronic Diarrhea (DC), Leukocytosis (ED), Weakness (ED), Fatigue (ED), Anemia (ED) Additional Instructions: As we discussed, no clear cause of your symptoms. The elevated white blood cells are known as leukocytosis and this can be a nonspecific marker of infection or inflammation. No source of infection has been identified and reasonable to defer antibiotics given this and especially because they often have a side effect of nausea/vomiting/diarrhea. Other than mildly low sodium your other electrolytes were normal. Recommend following up with primary care physician as well as keeping your upcoming heart catheterization. Recommend following up with your GI doctor if diarrhea persists (or the name of one is listed below if unable to see your previous doctor). Return to the emergency department with any new or worsening symptoms.Continue taking your meds as prescribed. Patient Language: Greenlandic Prescriptions: No Action escitalopram oxalate 10 mg tablet PO ezetimibe 10 mg tablet PO (DME) BD Integra Syringe 3 mL 23 gauge x 1 syringe See Rx Instructions .ROUTE .MEDSUPPLY Qty: 100 Rx Instructions: As directed escitalopram oxalate 10 mg tablet 10 mg PO DAILY atorvastatin 80 mg tablet 1 tablet PO DAILY hydrocodone-acetaminophen 10-325 mg tablet 1 tablet PO Q6H PRN (Reason: Pain (Scale Score 7-10)) amlodipine 10 mg tablet 1 tablet PO DAILY testosterone cypionate 200 mg/mL oil 200 mg IM MONTHLY zolpidem 10 mg tablet 0.5 - 1 tablet PO HS PRN (Reason: Sleep) Patient Comments: pt either takes half tab or whole depending on how he feels Xarelto 20 mg tablet 1 tablet PO DAILY Rx Instructions: with dinner Follow-up/Referrals: PHYSICIAN NOT ON STAFF,NONSTAFF [Primary Care Provider] Thony Adamson MD [Physician, Gastroenterology] Time of Disposition: 16:59
[2025-01-18 13:34] LABS: Hematocrit 38.7 % (42.0-52.0); Hemoglobin 13.1 g/dL (14.0-18.0); Immature Granulocyte Percent A 0.4 % (0-0.5); Lymphocytes Absolute Auto 1.47 K/mm3 (0.9-3.2); Mean Corpuscular HGB Conc 33.9 g/dl (32-36); Mean Corpuscular Hemoglobin 28.4 pg (26-34); Mean Corpuscular Volume 83.9 fl (80-100); Nucleated Red Blood Cells Absolute Auto 0.000 K/mm3 (0.0-0.012); Nucleated Red Blood Cells Perc 0.0 % (0.0-0.2); Platelet Count Result 239 k/mm3 (150-375); Red Blood Count 4.61 M/mm3 (4.6-6.20); White Blood Count 14.9 K/mm3 (4.5-10.0)
[2025-01-18 13:41] LABS: INR 1.2; Prothrombin Time 15.6 Seconds (11.1-14.7)
[2025-01-18 13:43] LABS: Partial Thromboplastin Time 30.6 Seconds (22.3-36.8)
--- NOTE | 2025-01-18 13:44 | PC.NURSE ---
Pharmacy called for diltiazem to be tubed to ER.
[2025-01-18] MEDS: SODIUM CHLORIDE 0.9% IV 500 ML 999 ML IV CONT (13:56)
[2025-01-18 13:57] VITALS: BP 111/91; PULSE 123; RESP 16; O2SAT 98
--- NOTE | 2025-01-18 14:04 | ECG_ITS ---
Test Date: 2025-01-18 15:10:15 Measurements Intervals [place] Rate: 94 P: 0 DE: 0 QRS: -56 QRSD: 174 T: 94 QT: 395 QTc: 496 Interpretive Statements ATRIAL FIBRILLATION MARKED LEFT AXIS DEVIATION [QRS AXIS < -30] LEFT BUNDLE BRANCH BLOCK [120+ ms QRS DURATION, 80+ ms Q/S IN V1/V2, 85+ ms R IN I/aVL/V5/V6] ABNORMAL EKG Compared to ECG 01/18/2025 12:59:20 Left bundle-branch block now present Atrial flutter no longer present Intraventricular conduction delay no longer present Electronically Signed On 01-18-2025 17:21:27 PRINTER REPAIR TECHNICIAN by Robert Palacios M.D.
--- NOTE | 2025-01-18 14:09 | PC.NURSE ---
lab called to add on ordered meds.
[2025-01-18 14:14] LABS: Estimated Glomerular Filt Rate > 60; Magnesium 2.1 mg/dL (1.6-2.3)
[2025-01-18 14:28] VITALS: BP 120/76; PULSE 87; RESP 15; O2SAT 99
[2025-01-18 15:19] VITALS: BP 109/72; PULSE 91; RESP 19; O2SAT 97
[2025-01-18 15:27] LABS: Add Urine Microscopic? YES; Appearance Urine Clear (Clear); Glucose Urine UA Negative (Negative); Leukocyte Esterase Ur Negative LEU/UL (Negative); Need Manual Microscopic Reviewed; Nitrate Urine Negative (Negative); Non Pathogenic Casts 0-2; Specific Grav Ur 1.024 (1.001-1.035)
[2025-01-18 15:40] LABS: Free T4 Free Thyroxine 1.24 ng/dL (0.78-2.19)
[2025-01-18 15:48] LABS: Alanine Aminotransferase 55 U/L (6-50); Albumin Level 3.6 g/dL (3.5-5.1); Alkaline Phosphatase 93 U/L (38-126); Anion Gap 10 mmol/L (4-12); Aspartate Amino Transferase 44 U/L (17-59); Bilirubin,Total 1.1 mg/dL (0.2-1.3); Blood Urea Nitrogen 20 mg/dL (9-20); Calcium 8.4 mg/dL (8.4-10.2); Carbon Dioxide 20 mmol/L (22-30); Chloride 100 mmol/L (98-107); Creatine Kinase 59 U/L (55-170); Estimated CRCL calculation 137 ml/min; Glucose 132 mg/dL (65-110); Potassium 3.9 mmol/L (3.4-5.0); Sodium 130 mmol/L (137-145); Total Protein 6.8 g/dL (6.3-8.2)
[2025-01-18 15:58] LABS: NT Pro B Type Natriuretic Pept 850 pg/mL (19.9-100); Troponin I 0.023 ng/mL (0.000-0.034)
[2025-01-18 16:10] LABS: Influenza A QL RT-PCR Negative (Negative); Influenza B QL RT-PCR Negative (Negative); RSV RNA, RT-PCR Negative (Negative); SARS-CoV-2 RNA PCR Negative (Negative)
[2025-01-18 16:15] VITALS: BP 101/76; PULSE 90; RESP 18; O2SAT 97
[2025-01-18 16:16] LABS: Thyroid Stimulating Hormone 0.292 uIU/mL (0.465-4.680)
--- NOTE | 2025-01-18 16:34 | PC.NURSE ---
Pt. educated that if he needs to use the restroom, doctor would like a stool sample. Pt. verbalized understanding.
--- NOTE | 2025-01-18 16:51 | PC.NURSE ---
Provider notified by this RN that pt was able to ambulate without unsteadiness. Provider also notified of pts mass below his left shoulder
--- NOTE | 2025-01-18 17:00 | PC.NURSE ---
Stool sample walked down to the lab.
[2025-01-18 18:00] LABS: Toxigenic C. Diff NEGATIVE (NEGATIVE)
[2025-01-18 18:13] VITALS: BP 93/72; PULSE 89; RESP 18; O2SAT 95
[2025-01-19 07:09] LABS: Triiodothyronine (T3), Free 2.2 pg/mL (2.0-4.4)
--- OUTSIDE RECORDS SUMMARY | 2025-01-19 09:54 | XMS_ITS | Encounter Summary ---
Author Organization [facility] Address [address] [place] [address] Phone Care Team Providers Care Finance Business Manager Name Role Phone Carlos James MD Primary Care Provider [phone] Encounter Details Date Type Department Care Team (Late st Contact Info) Description 12/08/2024 Results Follow-Up [facility] [address] [place] [address] [place] [address] Josh Guzman MD [address] [place] [address] Transthoracic Echo (TTE) Complete W Doppler/CF, NM MPI SPECT (Rest and/or Stress) Multiple Studies Social History Tobacco Use Types Packs/Day Years Used Date Smoking Tobacco: Never Passive Smoke Exposure: Past Smokeless Tobacco: Never Alcohol Use Standard Drinks/Week Comments Not Currently 0 (1 standard drink = 0.6 oz pur e alcohol) socially AUDIT-C Answer Date Recorded Q1: How often do you have a drink containing alcohol? Never 09/29/2024 Q2: How many drinks containi ng alcohol do you have on a typical day when you are drinking? Patient does not drink Q3: How often do you have si x or more drinks on one occasion? Never 09/29/2024 PHQ-2 Answer Date Recorded PHQ-2 Total Score (If total score is 3 or more points, staff should administer the PHQ-9) 0 06/30/2024 PHQ-9 Answer Date Recorded PHQ-9 Total Score 0 06/24/2024 Personal Safety Answer Date Recorded Have you ever been in or are you currently in a harmful physical or emotional relationship or is someone making you feel afraid or unsafe? Denies 06/24/2024 Sex and Gender Information Value Date Recorded Sex Assigned at Not on file Legal Sex Male 10:52 AM RUBBER GRINDER Gender Identity Not on file Sexual Orientation Not on file documented as of this encounter Miscellaneous Notes * Result Encounter Note - Josh Guzman MD - 01/10/2025 2:52 PM CDT Called and left a VM. Please reach out to them. Stress test was positive for ischemia suggesting CAD causing reduced flow with activity/stress. If his symptoms are similar to how they were in June, then I would recommend [facility] given his symptoms of SOB with minimal activity despite medical treatment including amlodipine and atenolol. If he prefers a trial of intesnfied medical management, may add Imdur 30 mg daily with repeat assessment in 1 month. Risks of cardiac cath include but are not limited to , myocardial infarction, stroke, bleeding, need for transfusion, vascular injury, need for emergency bypass surgery, allergic reaction, kidney injury, arrhythmias, and hypotension. The benefit, if there is a lesion amenable to stenting, would be reduced shortness of breath with activity. * Result Encounter Note - Josh Guzman MD - 12/08/2024 12:18 PM CDT Overall LVEF normal. There is reduce motion of the very tip of the heart. It looks similar to what was seen in 2019. There is mild TR. The RV is mildly enlarged, which may be due to pulmonary hypertension. This can be caused by LIV. Do they think he has LIV? documented in this encounter Plan of Treatment Upcoming Encounters Date Type Department Care Team (Latest Contact Info) Description 01/27/2025 9:11 AM RUBBER GRINDER Hospital Encounter [facility] [place] [facility] [address] [place] [address] Feliciano Pérez MD [address] [place] [address] Abnormal stress test; Coronary artery disease involving chehalis coronary artery of chehalis heart without angina pectoris; SCALES (dyspnea on exertion) 01/27/2025 9:11 AM RUBBER GRINDER - 01/27/2025 10:22 AM RUBBER GRINDER Surgery [facility] [address] [facility] [address] Feliciano Pérez MD [address] [place] [address] LEFT HEART CATHETERIZATION WITH CORONARY ANGIOGRAPHY AND WITH OR WITHOUT LEFT VENTRICULOGRAM [id number] documented as of this encounter Visit Diagnoses Not on filedocumented in this encounter Care Teams Finance Business Manager Relationship Specialty Start Date End Date Carlos James MD [address] [place] [address] [place] [id number] PCP - General 01/28/17 documented as of this encounter
--- OUTSIDE RECORDS SUMMARY | 2025-01-19 09:54 | XMS_ITS | Encounter Summary ---
Author Organization [facility] Healthcare Address [address] [place] [address] Care Team Providers Care Customer Development Representative Name Role Phone Carlos James MD Primary Care Provider [phone] Reason for Visit * Reason Onset Date Comments Weakness - Generalized 01/18/2025 Encounter Details Date Type Department Care Team (Late st Contact Info) Description 01/18/2025 Nurse Triage [facility] Medical Group Internal Medicine [address] [place] [phone] Carlos James MD [address] [place] [id number] Social History Tobacco Use Types Packs/Day Years Used Date Smoking Tobacco: Never Passive Smoke Exposure: Past Smokeless Tobacco: Never Alcohol Use Standard Drinks/Week Comments Not Currently 0 (1 standard drink = 0.6 oz pur e alcohol) socially PHQ-2 Answer Date Recorded PHQ-2 Total Score (If total score is 3 or more points, staff should administer the PHQ-9) 0 01/04/2025 PHQ-9 Answer Date Recorded PHQ-9 Total Score 0 06/24/2024 AUDIT-C Answer Date Recorded Q1: How often do you have a drink containing alcohol? Never 01/04/2025 Q2: How many drinks containi ng alcohol do you have on a typical day when you are drinking? Patient does not drink Q3: How often do you have si x or more drinks on one occasion? Never 01/04/2025 Personal Safety Answer Date Recorded Have you ever been in or are you currently in a harmful physical or emotional relationship or is someone making you feel afraid or unsafe? Denies 06/24/2024 Sex and Gender Information Value Date Recorded Sex Assigned at Not on file Legal Sex Male 10:52 AM SAP PI DEVELOPER Gender Identity Not on file Sexual Orientation Not on file documented as of this encounter Miscellaneous Notes * Telephone Encounter - Yuliana Paz MA - 01/18/2025 9:52 AM CST Call Back Caller???s Concern: Isa said ambulance is taking him to [facility]. Does message need to be routed? Yes-FYI Only PI DEVELOPER * Telephone Encounter - Digna Francisco RN - 01/18/2025 8:29 AM CST Reason for Conversation Weakness - Generalized Background Ms. Bustillos calls in today with concerns for Adrian. She reports weakness, confusion. States last nighthe was talking about dogs being in the house. Yesterday she took him for lab work. States he was not able to get stress, went in boxers and slippers. States he did not remember what car was theirs. States he is able to get to the bathroom, but is stumbling. States she cannot remember the last time he ate. Will only take sips of water. WBC on yesterday draw 14.8. Seen by PCP 01/04, reported diarrhea, fever, chills, loss of appetite, weight loss of 15lbs. During that appt mentioned that diarrhea was better and appetite improving. Encouraged Ms. Bustillos to call back with worsening sx. Disposition Call EMS 911 Now. Ms. Bustillos believes she can get patient in car to drive to ER. If she cannot, she will call EMS. Routing as an FYI. Reason for Disposition Sounds like a life-threatening emergency to the triager No Initial Assessment on file. No Additional Information on file. Protocols Used Weakness (Generalized) and Hbocymw-[place]-RJ PI DEVELOPER * Telephone Encounter - Digna Francisco RN - 01/18/2025 8:19 AM CST Regarding: listless , weakness, ----- Message from [place] R sent at 01/18/2025 8:19 AM SAP PI DEVELOPER ----- Symptom Based Call Chief Complaint(s): listless , weakness, Duration: on going What type of symptom(s) is the patient experiencing? Red Flag. Is the patient concerned they are experiencing a medical emergency requiring an ambulance? No Additional Comments: in bed for over 24 hours, has been seen in practice and symptoms are no better, white blood count is high. Not eating or drinking , very listless. Spouse,. Isa is on HIPAA. Does message need to be routed? Yes-Action Needed PI DEVELOPER documented in this encounter Plan of Treatment Upcoming Encounters Date Type Department Care Team (Latest Contact Info) Description 01/27/2025 9:11 AM SAP PI DEVELOPER Hospital Encounter [facility] Heart [facility] [place] [address] [place] [address] Feliciano Pérez MD [address] [address] Abnormal stress test; Coronary artery disease involving [place] coronary artery of [place] heart without angina pectoris; SCALES (dyspnea on exertion) 01/27/2025 9:11 AM SAP PI DEVELOPER - 01/27/2025 10:22 AM SAP PI DEVELOPER Surgery [facility] Heart [facility] Vascular [address] [phone] Feliciano Pérez MD [address] [address] LEFT HEART CATHETERIZATION WITH CORONARY ANGIOGRAPHY AND WITH OR WITHOUT LEFT VENTRICULOGRAM [id number] documented as of this encounter Visit Diagnoses Not on filedocumented in this encounter Care Teams Customer Development Representative Relationship Specialty Start Date End Date Carlos James MD [address] [address] PCP - General 01/28/17 documented as of this encounter
--- OUTSIDE RECORDS SUMMARY | 2025-01-19 09:54 | XMS_ITS | Encounter Summary ---
Author Organization [facility] Address [address] [place] [address] Phone Care Team Providers Care Child Development Assistant Name Role Phone Carlos James MD Primary Care Provider [phone] Encounter Details Date Type Department Care Team (Latest Contact Info) Description 01/17/2025 Orders Only [facility] Scanning, Provider Social History Tobacco Use Types Packs/Day Years [...] on file Legal Sex Male 10:52 AM NEWSPAPER JOURNALIST Gender Identity Not on file Sexual Orientation Not on file documented as of this encounter Progress Notes * Pattie Geller RN - 01/17/2025 11:59 PM CST Avail for review in [facility]. PAPER JOURNALIST documented in this encounter Plan of Treatment Upcoming Encounters Date Type Department Care Team (Latest Contact Info) Description 01/27/2025 9:11 AM NEWSPAPER JOURNALIST Hospital Encounter [facility] [place] [address] [place] [phone] Feliciano Pérez MD [address] [address] Abnormal stress test; Coronary artery disease involving [place] coronary artery of [place] heart without angina pectoris; SCALES (dyspnea on exertion) 01/27/2025 9:11 AM NEWSPAPER JOURNALIST - 01/27/2025 10:22 AM NEWSPAPER JOURNALIST Surgery [facility] Vascular [address] [phone] Feliciano Pérez MD [address] [facility] [address] [place] [address] LEFT HEART CATHETERIZATION WITH CORONARY ANGIOGRAPHY AND WITH OR WITHOUT LEFT VENTRICULOGRAM [id number] documented as of this encounter Procedures Procedure Name Priority Date/Time Associated Diagnosis Comments SCAN - LABS 01/17/2025 documented in this encounter Results * SCAN - LABS (01/17/2025) us Provider Scanning Final Result documented in this encounter Visit Diagnoses Not on filedocumented in this encounter Care Teams Child Development Assistant Relationship Specialty Start Date End Date Carlos James MD [address] [facility] [address] [place] [address] [place] [address] PCP - General 01/28/17 documented as of this encounter
--- OUTSIDE RECORDS SUMMARY | 2025-01-19 09:54 | XMS_ITS | Encounter Summary ---
Author Organization [facility] Facility Care Team Providers Care Foundation Drill Operator Helper Name Role Phone Carlos James MD Primary Care Provider [phone] Encounter Details Date Type Department Care Team (Latest Contact Info) Description 02/11/2018 Orders Only [facility] ProviderDar MD [address] [place], [place] [id number] Social History Tobacco Use Types Packs/Day Years Used Date Smoking Tobacco: Never Smokeless Tobacco: Never Sex and Gender Information Value Date Recorded Sex Assigned at Not on file Legal Sex Male 10:52 AM MARINE RADIO INSTALLER AND SERVICER Gender Identity Not on file Sexual Orientation Not on file documented as of this encounter Plan of Treatment Upcoming Encounters Date Type Department Care Team (Latest Contact Info) Description 01/27/2025 9:11 AM MARINE RADIO INSTALLER AND SERVICER Hospital Encounter [facility] [address] [place] [phone] Feliciano Pérez MD [address] [place] [address] Abnormal stress test; Coronary artery disease involving [place] coronary artery of [place] heart without angina pectoris; SCALES (dyspnea on exertion) 01/27/2025 9:11 AM MARINE RADIO INSTALLER AND SERVICER - 01/27/2025 10:22 AM MARINE RADIO INSTALLER AND SERVICER Surgery [facility] [address] [place] [phone] Feliciano Pérez MD [address] [place] [address] LEFT HEART CATHETERIZATION WITH CORONARY ANGIOGRAPHY AND WITH OR WITHOUT LEFT VENTRICULOGRAM [id number] documented as of this encounter Procedures Procedure Name Priority Date/Time Associated Diagnosis Comments PROCEDURE - RESULT 02/15/2018 12 :00 AM MARINE RADIO INSTALLER AND SERVICER documented in this encounter Results * PROCEDURE - RESULT (02/15/2018 12:00 AM MARINE RADIO INSTALLER AND SERVICER) Narrative 02/15/2018 12:00 AM MARINE RADIO INSTALLER AND SERVICER Ordered by an unspecified provider. Historical Provider Final Res ult documented in this encounter Visit Diagnoses Not on filedocumented in this encounter Additional Health Concerns Infection Onset Date Last Indicated Resolved Time COVID: Suspected 07/29/2019 07/29/2019 08/12/2019 3:05 AM CDT COVID: Suspected 04/04/2021 04/05/2021 04/05/2021 5:53 PM MARINE RADIO INSTALLER AND SERVICER COVID19 04/05/2021 04/05/2021 04/15/2021 3:05 AM MARINE RADIO INSTALLER AND SERVICER COVID: Recovered Comment:Added based on recent COVID infection. 04/15/2021 04/16/2021 08/13/2021 3:05 AM C DT documented as of this encounter Care Teams Foundation Drill Operator Helper Relationship Specialty Start Date End Date Carlos James MD [address] [facility] [place] [address] PCP - General 01/28/17 documented as of this encounter
--- OUTSIDE RECORDS SUMMARY | 2025-01-19 09:54 | XMS_ITS | Encounter Summary ---
Author Organization [facility] Facility Care Team Providers Care Bioinformatics Developer Name Role Phone Carlos James MD Primary Care Provider [phone] Encounter Details Date Type Department Care Team (Latest Contact Info) Description 01/15/2017 Orders Only [facility] ProviderDar MD [address] [place] [address] Social History Tobacco Use Types Packs/Day Years Used Date Smoking Tobacco: Never Assessed Sex and Gender Information Value Date Recorded Sex Assigned at Not on file Legal Sex Male 10:52 AM TIEDOWN OPERATOR Gender Identity Not on file Sexual Orientation Not on file documented as of this encounter Plan of Treatment Upcoming Encounters Date Type Department Care Team (Latest Contact Info) Description 01/27/2025 9:11 AM TIEDOWN OPERATOR Hospital Encounter [facility] [address] [place] [phone] Feliciano Pérez MD [address] [address] Abnormal stress test; Coronary artery disease involving [place] coronary artery of [place]oug[place] heart without angina pectoris; SCALES (dyspnea on exertion) 01/27/2025 9:11 AM TIEDOWN OPERATOR - 01/27/2025 10:22 AM TIEDOWN OPERATOR Surgery [facility] [address] [place] [address] Feliciano Pérez MD [address] [address] LEFT HEART CATHETERIZATION WITH CORONARY ANGIOGRAPHY AND WITH OR WITHOUT LEFT VENTRICULOGRAM [id number] documented as of this encounter Procedures Procedure Name Priority Date/Time Associated Diagnosis Comments SCAN - PATHOLOGY 01/19/2017 12:0 0 AM TIEDOWN OPERATOR documented in this encounter Results * SCAN - PATHOLOGY (01/19/2017 12:00 AM TIEDOWN OPERATOR) Narrative 01/19/2017 12:00 AM TIEDOWN OPERATOR Ordered by an unspecified provider. us Historical Provider Final Res ult documented in this encounter Visit Diagnoses Not on filedocumented in this encounter Additional Health Concerns Infection Onset Date Last Indicated Resolved Time COVID: Suspected 07/29/2019 07/29/2019 08/12/2019 3:05 AM CDT COVID: Suspected 04/04/2021 04/05/2021 04/05/2021 5:53 PM TIEDOWN OPERATOR COVID19 04/05/2021 04/05/2021 04/15/2021 3:05 AM TIEDOWN OPERATOR COVID: Recovered Comment:Added based on recent COVID infection. 04/15/2021 04/16/2021 08/13/2021 3:05 AM C DT documented as of this encounter Care Teams Bioinformatics Developer Relationship Specialty Start Date End Date Carlos James MD [address] [facility] [place] [place] [address] PCP - General 01/28/17 documented as of this encounter
--- OUTSIDE RECORDS SUMMARY | 2025-01-19 09:54 | XMS_ITS | Clinical Summary ---
Author Organization [facility] Address [id number] [address] [facility] [place] [address] Care Team Providers Care Coiler Name Role Phone Carlos James MD Primary Care Provider [phone] Allergies No known active allergies Medications syringe with needle (BD Luer-Bimal Syringe) 3 mL 22 gauge x 1 syringe USE ONCE MONTHLY WITH TESTOSTERONE 3 each 3 11/22/19 23 Active syringe with needle (BD Luer-Bimal Syringe) 3 mL 23 x 1 syringe USE TO INJECT TESTOSTERONE ONCE MONTHLY 3 each 3 11/02/19 24 Active Xarelto 20 mg tablet TAKE 1 TABLET BY MOUTH EVERY DAY BEFORE DINNER 90 tablet 3 03/21/19 25 Active ezetimibe (ZETIA) 10 mg tablet Take 1 tablet (10 mg total) by mouth daily 90 tablet 3 06/23/19 25 Active metFORMIN XR (GLUCOPHAGE XR) 500 mg 24 hr tablet TAKE 1 TABLET BY MOUTH EVERY DAY WITH BREAKFAST 90 tablet 1 09/16/19 25 Active atorvastatin (LIPITOR) 40 mg tablet Take 1 tablet (40 mg total) by mouth daily Active testosterone cypionate (DEPO-TESTOTE SHANE) 200 mg/mL injectionIndi cations:Hypog onadism in male INJECT 1 ML INTO THE MUSCLE INSTRUCTED EVERY 28 DAYS 3 mL 1 10/14/19 25 Active dexAMETHasone 0.5 mg/5 mL elixir TAKE 5ML BY MOUTH TWICE A DAY FOR 14 DAYS. SWISH FOR LONG YOU CAN AND SPIT 10/22/19 25 Active amLODIPine (NORVASC) 10 mg tablet TAKE 1 TABLET BY MOUTH EVERY DAY 90 tablet 1 11/16/19 25 Active BD Integra Syringe 3 mL 23 gauge x 1 syringe Use 1 every 28 days with testosterone cypionate 3 each 3 12/15/19 25 Active escitalopram (LEXAPRO) 10 mg tablet TAKE 1 TABLET BY MOUTH EVERY DAY 90 tablet 1 12/22/19 25 Active zolpidem (AMBIEN) 10 mg tablet Take 1 tablet (10 mg total) by mouth daily as needed for sleep 30 tablet 3 01/05/20 25 Active HYDROcodone-a cetaminophen (NORCO) 10-325 mg per tabletIndicat ions:Pain Take 1 tablet by mouth every 6 (six) hours as needed for pain 120 tablet 01/14/20 25 025 Active escitalopram (LEXAPRO) 10 mg tablet Take 1 tablet (10 mg total) by mouth daily 90 tablet 1 04/01/19 25 025 Discontinued zolpidem (AMBIEN) 10 mg tablet TAKE 1 TABLET BY MOUTH AT BEDTIME NEEDED FOR SLEEP 30 tablet 2 10/04/19 25 025 Discontinued HYDROcodone-a cetaminophen (NORCO) 10-325 mg per tabletIndicat ions:Pain Take 1 tablet by mouth every 6 (six) hours as needed for pain 120 tablet 12/15/19 25 025 Discontinued(R eorder) zolpidem (AMBIEN) 10 mg tablet TAKE 1 TABLET BY MOUTH EVERY DAY AT BEDTIME NEEDED FOR SLEEP 30 tablet 3 01/03/20 25 025 Discontinued(R eorder) Active Problems Problem Noted Date Diagnosed Date Abnormal stress test 01/10/2025 Coronary artery disease invo lving [place] coronary artery of [place] heart without angina pectoris 01/10/2025 SCALES (dyspnea on exertion) 01/10/2025 Persistent atrial fibrillation 06/30/2024 Assessment & Plan (01/04/2025 7:08 AM CDT): Status post ablation therapy. Assessment & Plan (09/29/2024 9:05 AM CDT): Status post ablation therapy. Heart rate is low. Patient said that his heart rate runs on average below 60. He is on atenolol 25 mg daily. We will stop atenolol especially complains of fatigue and tiredness. The patient will continue to monitor his heart rate and he will call us if he has elevation of his heart rate above 100 Assessment & Plan (07/27/2024 2:08 PM CDT): -Symptomatic persistent atrial fibrillation s/p AF ablation with electrical isolation of the pulmonary veins and posterior wall 06/24/2024 - Dr Peng -He is doing well post ablation without recurrence of atrial fibrillation and he feels significantly better in sinus rhythm -Continue atenolol 25 mg daily for rate control -Continue Xarelto for stroke risk reduction -Encouraged lifestyle modifications including regular physical exercise, weight loss, limiting alcohol intake, BP control and treatment of sleep apnea to reduce AF recurrence Assessment & Plan (06/30/2024 10:48 AM CDT): Patient is maintained on Xarelto. He is in normal sinus rhythm. Status post ablation therapy. Type 2 diabetes mellitus with chronic kidney dis ease 03/31/2024 Assessment & Plan (01/04/2025 7:09 AM CDT): Hemoglobin A1c was 6.6. Continue metformin and low carb diet and follow up with the field marketer on annual basis. Assessment & Plan (09/29/2024 7:14 AM CDT): Hemoglobin A1c was 6.8. Continue metformin and low carb diet and follow up with the field marketer on annual basis. Assessment & Plan (06/30/2024 10:46 AM CDT): Hemoglobin A1c was 6.8. Continue metformin and low carb diet and follow up with the field marketer on annual basis. Assessment & Plan (06/25/2024 9:04 AM CDT): Continue with POCT glucose monitoring and low-dose sliding scale insulin Assessment & Plan (06/24/2024 5:50 PM CDT): Continue with POCT glucose monitoring and low-dose sliding scale insulin Assessment & Plan (04/01/2024 9:57 AM DIGITAL MARKETING LEAD): Hemoglobin A1c is 7.4. Patient said that his sugar readings run on average below 130 most of the time. Will continue with current dose of metformin. Encouraged to watch his diet and cut down in the calorie intake. Continue to have annual eye exam. Trigger finger of left thumb 02/11/2023 Trigger little finger of left hand 12/29/2022 Assessment & Plan (04/01/2024 9:53 AM DIGITAL MARKETING LEAD): Patient with trigger finger of the left little finger. Patient wants to proceed with steroid injection. He received it under aseptic technique. Patient to call for persistent symptoms Assessment & Plan (12/29/2022 10:07 AM CDT): Patient with trigger finger of the left little finger. Patient once to proceed with steroid injection. He received it under aseptic technique. Patient to call for persistent symptoms Right carpal tunnel syndrome 12/29/2022 Assessment & Plan (12/29/2022 10:08 AM CDT): Patient with severe right carpal tunnel syndrome. Will make him a referral to see a hand surgeon Left facial swelling 11/25/2022 Assessment & Plan (11/25/2022 12:25 PM CDT): Patient with swelling in the left parotid and submandibular area. Most likely it is secondary to salivary gland. Will start him on Augmentin 875 mg b.i.d. for 7 days and will obtain ultrasound for further evaluation. Skin rash 10/07/2022 Assessment & Plan (10/07/2022 10:41 AM CDT): Patient with skin rash in the anterior aspect of the right chest. He tried hydrocortisone cream and that did not help. It could be yeast infection. Will start him on Nizoral cream 2% twice daily and he will call for persistent symptoms. BMI 31.0-31.9,adult 07/01/2022 Numbness and tingling in right hand 04/01/2022 Assessment & Plan (11/25/2022 12:26 PM CDT): Patient with persistent numbness in the right hand. He uses wrist brace and that helps. Most likely it is secondary to carpal tunnel syndrome. Will obtain nerve conduction study Assessment & Plan (04/01/2022 9:21 AM DIGITAL MARKETING LEAD): Patient has numbness in the right hand consistent with carpal tunnel syndrome. I recommended nerve conduction study but he declined. I told him to try wrist brace and if the symptoms get worse or if he changes his mind we can proceed with the EMG- ENG Glenohumeral arthritis, left 11/05/2021 Shoulder arthritis 09/02/2021 Overview (09/02/2021): Added automatically from request for surgery [id number] Assessment & Plan (09/26/2021 8:09 AM CDT): Patient is scheduled for left total shoulder replacement Oral lesion 06/04/2021 Assessment & Plan (09/29/2024 9:06 AM CDT): Patient was seen by oral surgeon in the past. He did a biopsy which was benign. Patient wants the lesion on the left inner cheek area evaluated again. Will make him a referral to see ENT doctor Assessment & Plan (04/23/2022 5:19 PM DIGITAL MARKETING LEAD): Oral surgery referral Assessment & Plan (06/04/2021 11:09 AM CDT): Patient has chronic lesion on the left side of the buccal mucosa. He was seen by oral surgeon and he had biopsy of that lesion and he was told it was benign. He has recurrence of that lesion and it seems the oral surgeon according to the patient has no other recommendations. Will make him a referral to see ENT specialist for further evaluation. Chronic left shoulder pain 06/04/2021 Assessment & Plan (12/30/2021 8:03 AM CDT): Status post left total shoulder replacement Assessment & Plan (06/28/2021 10:10 AM CDT): Patient complains of severe pain in the left shoulder. He changed his mind and he is willing to see orthopedic doctor. Will make him a referral. Assessment & Plan (06/04/2021 11:10 AM CDT): Patient has chronic left shoulder pain secondary to severe osteoarthritis. He was seen by orthopedic doctor few years ago. He is not interested in surgical intervention. He is on [place] for chronic pain. He likes to proceed with steroid injection. Patient received it under aseptic technique without complications. He will call for persistent symptoms. Fatty liver 12/28/2020 Assessment & Plan (10/07/2022 7:38 AM CDT): Patient was advised to continue low-fat diet and low calorie diet and try to lose weight Assessment & Plan (12/28/2020 9:13 AM CDT): CT scan of the chest in July 2020 showed fatty liver. Discussed that with the patient. The main thing with fatty liver is weight loss. Patient cannot exercise because of his chronic pain. He said that he watches his diet. We discussed low calorie diet and encouraged weight loss. Depression, major, recurrent 12/28/2019 Assessment & Plan (09/29/2024 7:13 AM CDT): Controlled on Lexapro Assessment & Plan (06/30/2024 7:38 AM CDT): Controlled on Lexapro Assessment & Plan (04/01/2024 7:35 AM DIGITAL MARKETING LEAD): Controlled on Lexapro Assessment & Plan (09/29/2023 7:34 AM CDT): Controlled on Lexapro Assessment & Plan (06/30/2023 7:28 AM CDT): Controlled on Lexapro Assessment & Plan (10/07/2022 7:38 AM CDT): Controlled on Lexapro Assessment & Plan (07/01/2022 7:50 AM CDT): Controlled on Lexapro Assessment & Plan (04/23/2022 5:20 PM DIGITAL MARKETING LEAD): Patient will be started back on Lexapro 10 mg daily. Has no suicidal ideations. BuSpar will be stopped. Assessment & Plan (04/01/2022 9:22 AM DIGITAL MARKETING LEAD): Stable without medications. He is on BuSpar for anxiety. Assessment & Plan (09/26/2021 12:01 PM CDT): Stop Trintellix slowly and will start him on Lexapro 20 mg daily and he will call us in 1 month for persistent symptoms Assessment & Plan (06/28/2021 8:06 AM CDT): Controlled on Trintellix Assessment & Plan (03/29/2021 11:23 AM DIGITAL MARKETING LEAD): Controlled on Trintellix Assessment & Plan (12/28/2020 9:12 AM CDT): Controlled on Trintellix Assessment & Plan (06/28/2020 8:33 AM CDT): Controlled on Trintellix Assessment & Plan (12/28/2019 9:22 AM CDT): Controlled on Viibryd. The patient feels much better with the medication. No suicidal ideations. Diplopia 11/14/2019 Assessment & Plan (12/28/2019 9:22 AM CDT): Patient is in normal sinus rhythm and maintained on Eliquis Assessment & Plan (11/14/2019 12:44 PM CDT): The patient complains of diplopia of 1 day duration. He was evaluated by field marketer recently and the evaluation was normal according to the patient. His symptoms started after cardioversion. Patient does not have any neurological deficit. It is possible that he has another TIA. Will obtain MRI of the brain for further evaluation. He will continue Eliquis. Dyslipidemia 06/29/2019 Assessment & Plan (01/04/2025 7:07 AM CDT): LDL is 60. Continue atorvastatin and Zetia. Assessment & Plan (09/29/2024 9:04 AM CDT): LDL is 60. Patient complains of more fatigue than normal. His ALT is slightly elevated. It could be secondary to atorvastatin. Will cut down the dose from 80 mg daily to 40 mg daily. Continue Zetia. Assessment & Plan (06/30/2024 7:39 AM CDT): Controlled on current medications. Continue low-fat diet. Will continue to monitor . Assessment & Plan (04/01/2024 7:35 AM DIGITAL MARKETING LEAD): Controlled on current medications. Continue low-fat diet. Will continue to monitor . Assessment & Plan (12/31/2023 7:45 AM CDT): Controlled on current medications. Continue low-fat diet. Will continue to monitor . Assessment & Plan (09/29/2023 7:34 AM CDT): Controlled on current medications. Continue low-fat diet. Will continue to monitor . Assessment & Plan (06/30/2023 7:28 AM CDT): Controlled on current medications. Continue low-fat diet. Will continue to monitor . Assessment & Plan (03/31/2023 8:22 AM DIGITAL MARKETING LEAD): Controlled on current medications. Continue low-fat diet. Will continue to monitor . Assessment & Plan (12/29/2022 8:05 AM CDT): Controlled on current medications. Continue low-fat diet. Will continue to monitor . Assessment & Plan (10/07/2022 7:38 AM CDT): Controlled on current medications. Continue low-fat diet. Will continue to monitor . Assessment & Plan (07/01/2022 7:49 AM CDT): Controlled on current medications. Continue low-fat diet. Will continue to monitor . Assessment & Plan (04/01/2022 9:21 AM DIGITAL MARKETING LEAD): Controlled on current medications. Continue low-fat diet. Will continue to monitor . Assessment & Plan (12/30/2021 8:03 AM CDT): Controlled on current medications. Continue low-fat diet. Will continue to monitor . Assessment & Plan (06/28/2021 8:05 AM CDT): Controlled on current medications. Continue low-fat diet. Will continue to monitor . Assessment & Plan (03/29/2021 11:23 AM DIGITAL MARKETING LEAD): Advised to take his medications on daily basis. Continue low-fat diet Assessment & Plan (12/28/2020 9:12 AM CDT): Controlled on current medications. Continue low-fat diet. Will continue to monitor . Assessment & Plan (09/27/2020 9:32 AM CDT): Controlled on current medications. Continue low-fat diet. Will continue to monitor . Assessment & Plan (06/28/2020 8:32 AM CDT): Controlled on current medications. Continue low-fat diet. Will continue to monitor . Assessment & Plan (03/29/2020 8:06 AM DIGITAL MARKETING LEAD): Controlled on current medications. Continue low-fat diet. Will continue to monitor . Assessment & Plan (09/28/2019 9:08 AM CDT): Controlled on current medications. Continue low-fat diet. Will continue to monitor . Assessment & Plan (06/29/2019 9:21 AM CDT): Controlled on current medications. Continue low-fat diet. Will continue to monitor . Rib pain on left side 03/08/2019 Assessment & Plan (03/08/2019 9:04 AM DIGITAL MARKETING LEAD): The patient complains of pain on the left side of the ribcage area. The exam is unremarkable and there is no tenderness or swelling or skin changes etc.. The patient is currently asymptomatic. His pain is controlled with pain medications. Will continue with current treatment and he will let me know if his pain gets worse Pain of finger of right hand 03/08/2019 Assessment & Plan (03/08/2019 9:05 AM DIGITAL MARKETING LEAD): The patient has pain in the right hand with negative exam. I recommended observation and if thinks changed he will call us Pulmonary nodules 09/28/2018 Assessment & Plan (01/04/2025 9:59 AM CDT): CT scan in January 2023 showed 2 pulmonary nodules with no change. Repeat lung scan Assessment & Plan (09/29/2023 7:34 AM CDT): CT scan in January 2023 showed 2 pulmonary nodules with no change Assessment & Plan (06/30/2023 7:30 AM CDT): CT scan in January 2023 showed 2 pulmonary nodules with no change Assessment & Plan (12/29/2022 10:06 AM CDT): Will repeat CT of the lungs without contrast for follow-up Assessment & Plan (04/01/2022 8:06 AM DIGITAL MARKETING LEAD): No change in the size of pulmonary nodules on CT in January 2022 Assessment & Plan (12/30/2021 11:54 AM CDT): Will order CT of the lungs again Assessment & Plan (09/26/2021 12:00 PM CDT): Will obtain CT of the chest for further evaluation Assessment & Plan (03/29/2021 11:23 AM DIGITAL MARKETING LEAD): Pulmonary nodule was stable in July 2020 Assessment & Plan (12/28/2020 9:12 AM CDT): CT scan of the chest in July 2020 showed no change in pulmonary nodule Assessment & Plan (09/27/2020 11:32 AM CDT): CT of the lungs in July 2020 showed no change in 7 mm pulmonary nodule Assessment & Plan (06/28/2020 8:33 AM CDT): Will repeat CT of the chest for follow-up on pulmonary nodule Assessment & Plan (06/29/2019 9:21 AM CDT): We we will plan to repeat the test in September 2019 Assessment & Plan (03/30/2019 11:56 AM DIGITAL MARKETING LEAD): Pulmonary nodule on CT of the chest in September 2018 and will continue to monitor Assessment & Plan (12/30/2018 9:10 AM CDT): CT of the chest in October 2018 showed tiny pulmonary nodules most likely granulomas. Assessment & Plan (09/28/2018 9:39 AM CDT): The patient had 3 mm pulmonary nodule in the past and will obtain CT of the chest for further evaluation Lower abdominal pain 09/28/2018 Assessment & Plan (09/28/2018 9:40 AM CDT): The patient has chronic intermittent lower abdominal pain. His last CT scan in 2014 did not show acute abnormalities. Will repeat the CT scan for further evaluation. The pain most likely is muscular in origin. Skin lesion 09/28/2018 Assessment & Plan (09/28/2018 9:40 AM CDT): The patient has small skin lesion on the right side of the nose and will make him a referral to see a plastic surgeon for possible excision. Primary insomnia 08/05/2018 Assessment & Plan (06/30/2023 7:29 AM CDT): Controlled on Ambien Assessment & Plan (06/28/2021 8:06 AM CDT): Controlled on Ambien Assessment & Plan (06/28/2020 8:32 AM CDT): Controlled on Ambien Assessment & Plan (09/28/2019 9:08 AM CDT): Patient has good results with Ambien Assessment & Plan (06/29/2019 9:21 AM CDT): Lower Ambien to 10 mg q.h.s. p.r.n. Assessment & Plan (12/30/2018 9:10 AM CDT): Controlled on Ambien p.r.n. Assessment & Plan (08/05/2018 8:25 AM CDT): The patient will be started on Ambien 10 mg q.h.s. P.r.n. And side effects were explained. Trigger ring finger of right hand 08/05/2018 Assessment & Plan (04/01/2024 9:53 AM DIGITAL MARKETING LEAD): Patient with recurrent symptoms of trigger finger in the ring finger. He received steroid injection without complications. Patient will call for persistent symptoms. Assessment & Plan (09/29/2023 10:15 AM CDT): Patient with recurrent symptoms of trigger finger in the ring finger. He received steroid injection without complications. Patient will call for persistent symptoms. Assessment & Plan (08/05/2018 8:25 AM CDT): The patient received cortisone injection and he will call for persistent symptoms. Benign prostatic hyperplasia without lower urinary tract symptoms 01/05/2018 Assessment & Plan (01/04/2025 7:06 AM CDT): Asymptomatic Assessment & Plan (09/29/2024 7:13 AM CDT): Asymptomatic Assessment & Plan (04/01/2024 7:35 AM DIGITAL MARKETING LEAD): Asymptomatic Assessment & Plan (12/29/2022 8:05 AM CDT): Asymptomatic Assessment & Plan (09/27/2020 9:32 AM CDT): Asymptomatic Assessment & Plan (03/29/2020 8:06 AM DIGITAL MARKETING LEAD): Asymptomatic Assessment & Plan (09/28/2019 9:07 AM CDT): Asymptomatic Assessment & Plan (12/30/2018 9:09 AM CDT): Controlled on Flomax Assessment & Plan (09/27/2018 7:51 PM CDT): Controlled on Flomax Assessment & Plan (06/29/2018 12:57 PM CDT): Controlled on Flomax Chronic pain syndrome 01/01/2017 Assessment & Plan (06/30/2023 12:51 PM CDT): Patient has a chronic pain in his back and shoulders and knees. He is maintained on [place] with good relief Assessment & Plan (12/28/2019 9:20 AM CDT): Patient has a chronic pain in his back and shoulders and knees. He is maintained on [place] with good relief Assessment & Plan (03/30/2019 11:55 AM DIGITAL MARKETING LEAD): Continue current pain medication Assessment & Plan (12/30/2018 9:09 AM CDT): The patient has a chronic pain and he is maintained on [place] with good relief Assessment & Plan (09/27/2018 7:51 PM CDT): The patient has a chronic pain in different joints of his body and he is currently on [place] p.r.n. With good relief Assessment & Plan (06/29/2018 12:54 PM CDT): The patient is maintained on [place] with relatively good relief and the patient is compliant with the medication. History of aortic valve repl acement with bioprosthetic valve 07/16/2015 Assessment & Plan (12/31/2023 7:45 AM CDT): Managed by the road freight brake coupler Assessment & Plan (06/30/2023 7:28 AM CDT): Managed by the road freight brake coupler Assessment & Plan (03/31/2023 8:22 AM DIGITAL MARKETING LEAD): Managed by the road freight brake coupler Assessment & Plan (12/29/2022 8:05 AM CDT): Managed by the road freight brake coupler Assessment & Plan (07/01/2022 7:49 AM CDT): Managed by the road freight brake coupler Assessment & Plan (06/28/2021 8:05 AM CDT): Managed by the road freight brake coupler Assessment & Plan (12/28/2020 9:14 AM CDT): Patient is followed by the road freight brake coupler Assessment & Plan (09/27/2020 9:32 AM CDT): Followed by the road freight brake coupler Assessment & Plan (06/28/2020 8:33 AM CDT): Asymptomatic and followed by the road freight brake coupler Assessment & Plan (12/28/2019 9:20 AM CDT): Status post aortic valve replacement and followed by the surgeon Assessment & Plan (06/29/2019 9:20 AM CDT): Status post aortic valve replacement. He is followed by the road freight brake coupler Assessment & Plan (03/30/2019 11:55 AM DIGITAL MARKETING LEAD): Continue aspirin and the patient is followed by the road freight brake coupler Assessment & Plan (09/27/2018 7:50 PM CDT): The patient is asymptomatic and followed by the road freight brake coupler History of aortic stenosis 07/10/2015 Assessment & Plan (09/28/2019 9:07 AM CDT): Status post aortic valve replacement Hypogonadism in male 06/18/2015 Assessment & Plan (01/04/2025 7:08 AM CDT): Patient is on testosterone injections with good results Assessment & Plan (09/29/2024 7:13 AM CDT): Patient is on testosterone injections with good results Assessment & Plan (06/30/2024 10:46 AM CDT): Patient is on testosterone injections with good results Assessment & Plan (12/31/2023 7:45 AM CDT): Patient is on testosterone injections with good results Assessment & Plan (06/30/2023 7:28 AM CDT): Patient is on testosterone injections with good results Assessment & Plan (03/31/2023 8:22 AM DIGITAL MARKETING LEAD): Patient is on testosterone injections with good results Assessment & Plan (12/29/2022 8:06 AM CDT): Patient is on testosterone injections with good results Assessment & Plan (10/07/2022 7:38 AM CDT): Patient is on testosterone injections with good results Assessment & Plan (07/01/2022 7:49 AM CDT): Patient is on testosterone injections with good results Assessment & Plan (04/01/2022 8:04 AM DIGITAL MARKETING LEAD): Controlled on testosterone injections Assessment & Plan (12/30/2021 8:04 AM CDT): Controlled on testosterone injections Assessment & Plan (09/26/2021 8:09 AM CDT): Controlled on testosterone injections Assessment & Plan (03/29/2021 11:22 AM DIGITAL MARKETING LEAD): Controlled on testosterone injections Assessment & Plan (12/28/2020 9:12 AM CDT): Controlled on testosterone injections Assessment & Plan (09/27/2020 9:33 AM CDT): Testosterone level is normal. The patient uses testosterone injections. He has more energy with the injections. Assessment & Plan (06/28/2020 8:32 AM CDT): Patient is maintained on testosterone injections with improvement in his symptoms Assessment & Plan (03/29/2020 8:06 AM DIGITAL MARKETING LEAD): Patient is maintained on testosterone injections with good results Assessment & Plan (12/28/2019 9:22 AM CDT): Continue testosterone injections and will obtain testosterone level before next visit with PSA Assessment & Plan (09/28/2019 9:08 AM CDT): The patient will resume testosterone injections 200 mg IM every month Assessment & Plan (06/29/2019 9:21 AM CDT): Patient is maintained on testosterone injections Assessment & Plan (12/30/2018 9:09 AM CDT): The patient is on testosterone injections but he does not take them on regular basis Assessment & Plan (09/28/2018 9:42 AM CDT): Continue testosterone injections. Assessment & Plan (06/29/2018 12:55 PM CDT): Patient will be started on testosterone injections 200 mg IM every 3-4 weeks. Side effects were explained to the patient and will continue to monitor History of CVA (cerebrovascular accident) 2015 Assessment & Plan (01/04/2025 7:07 AM CDT): No focal deficit. He is maintained on Xarelto Assessment & Plan (06/30/2024 7:39 AM CDT): No focal deficit. He is maintained on Xarelto Assessment & Plan (04/01/2024 7:35 AM DIGITAL MARKETING LEAD): No focal deficit. He is maintained on Xarelto Assessment & Plan (09/29/2023 7:34 AM CDT): No focal deficit. He is maintained on Xarelto Assessment & Plan (06/30/2023 7:28 AM CDT): No focal deficit. He is maintained on Xarelto Assessment & Plan (10/07/2022 7:38 AM CDT): No focal deficit. He is maintained on Xarelto Assessment & Plan (09/27/2020 9:32 AM CDT): No focal deficit Assessment & Plan (06/28/2020 8:32 AM CDT): No deficit. Continue Eliquis Assessment & Plan (09/27/2018 7:52 PM CDT): No focal deficit and continue aspirin daily Assessment & Plan (06/29/2018 12:55 PM CDT): The patient had TIA status post valve replacement and he is asymptomatic Chronic bilateral low back pain with bilateral s ciatica 06/18/2015 Assessment & Plan (09/29/2024 7:13 AM CDT): Patient is maintained on [place] with good relief Assessment & Plan (06/30/2024 7:38 AM CDT): Patient is maintained on [place] with good relief Assessment & Plan (04/01/2024 7:35 AM DIGITAL MARKETING LEAD): Patient is maintained on [place] with good relief Assessment & Plan (12/31/2023 7:45 AM CDT): Patient is maintained on [place] with good relief Assessment & Plan (06/30/2023 12:51 PM CDT): Patient is maintained on [place] with good relief Assessment & Plan (03/31/2023 8:22 AM DIGITAL MARKETING LEAD): Patient is maintained on [place] with good relief Assessment & Plan (12/29/2022 8:05 AM CDT): Patient is maintained on [place] with good relief Assessment & Plan (10/07/2022 7:37 AM CDT): Patient is maintained on [place] with good relief Assessment & Plan (07/01/2022 7:49 AM CDT): Patient is maintained on [place] with good relief Assessment & Plan (04/01/2022 8:04 AM DIGITAL MARKETING LEAD): Continue [place] p.r.n. Assessment & Plan (09/26/2021 12:02 PM CDT): Continue [place] Assessment & Plan (06/28/2021 8:05 AM CDT): Continue [place] p.r.n. Assessment & Plan (03/29/2021 11:23 AM DIGITAL MARKETING LEAD): Continue [place] as needed Assessment & Plan (12/28/2020 9:13 AM CDT): Controlled on [place] Assessment & Plan (09/27/2020 9:32 AM CDT): The patient will continue with [place] on as needed basis Assessment & Plan (06/28/2020 8:34 AM CDT): Controlled on [place] Assessment & Plan (06/29/2019 9:21 AM CDT): Continue current medications Assessment & Plan (03/08/2019 9:07 AM DIGITAL MARKETING LEAD): Controlled on [place] Assessment & Plan (09/28/2018 9:40 AM CDT): The patient has a chronic back pain and he is on [place] with good relief. Assessment & Plan (06/29/2018 12:55 PM CDT): Continue [place] Hypertension, essential 07/11/2013 Assessment & Plan (01/04/2025 7:07 AM CDT): Continue current medications. Discussed low-salt diet. Discussed exercise on regular basis. Will continue to monitor Assessment & Plan (06/30/2024 7:39 AM CDT): Continue current medications. Discussed low-salt diet. Discussed exercise on regular basis. Will continue to monitor Assessment & Plan (09/29/2023 7:34 AM CDT): Continue current medications. Discussed low-salt diet. Discussed exercise on regular basis. Will continue to monitor Assessment & Plan (06/30/2023 7:28 AM CDT): Continue current medications. Discussed low-salt diet. Discussed exercise on regular basis. Will continue to monitor Assessment & Plan (03/31/2023 8:22 AM DIGITAL MARKETING LEAD): Continue current medications. Discussed low-salt diet. Discussed exercise on regular basis. Will continue to monitor Assessment & Plan (12/29/2022 8:06 AM CDT): Continue current medications. Discussed low-salt diet. Discussed exercise on regular basis. Will continue to monitor Assessment & Plan (10/07/2022 7:38 AM CDT): Continue current medications. Discussed low-salt diet. Discussed exercise on regular basis. Will continue to monitor Assessment & Plan (04/01/2022 8:03 AM DIGITAL MARKETING LEAD): Continue current medications. Discussed low-salt diet. Discussed exercise on regular basis. Will continue to monitor Assessment & Plan (12/30/2021 8:01 AM CDT): Continue current medications. Discussed low-salt diet. Discussed exercise on regular basis. Will continue to monitor Assessment & Plan (09/26/2021 8:09 AM CDT): Continue current medications. Discussed low-salt diet. Discussed exercise on regular basis. Will continue to monitor Assessment & Plan (06/28/2021 8:05 AM CDT): Continue current medications. Discussed low-salt diet. Discussed exercise on regular basis. Will continue to monitor Assessment & Plan (12/28/2020 9:12 AM CDT): Continue current medications. Discussed low-salt diet. Discussed exercise on regular basis. Will continue to monitor Assessment & Plan (09/27/2020 9:32 AM CDT): Continue current medications. Discussed low-salt diet. Discussed exercise on regular basis. Will continue to monitor Assessment & Plan (03/29/2020 8:06 AM DIGITAL MARKETING LEAD): Continue current medications. Discussed low-salt diet. Discussed exercise on regular basis. Will continue to monitor Assessment & Plan (12/28/2019 9:20 AM CDT): Continue current medications. Discussed low-salt diet. Discussed exercise on regular basis. Will continue to monitor Assessment & Plan (09/28/2019 9:06 AM CDT): Continue current medications. Discussed low-salt diet. Discussed exercise on regular basis. Will continue to monitor Assessment & Plan (06/29/2019 9:20 AM CDT): Continue current medications. Discussed low-salt diet. Discussed exercise on regular basis. Will continue to monitor Assessment & Plan (03/30/2019 11:55 AM DIGITAL MARKETING LEAD): Continue current medications. Discussed low-salt diet. Discussed exercise on regular basis. Will continue to monitor Assessment & Plan (03/08/2019 9:07 AM DIGITAL MARKETING LEAD): Continue current medications. Discussed low-salt diet. Discussed exercise on regular basis. Will continue to monitor Assessment & Plan (12/30/2018 9:08 AM CDT): Continue current medications. Discussed low-salt diet. Discussed exercise on regular basis. Will continue to monitor Assessment & Plan (09/27/2018 7:50 PM CDT): Continue current medications. Discussed low-salt diet. Discussed exercise on regular basis. Will continue to monitor Assessment & Plan (06/29/2018 12:54 PM CDT): Continue current medications. Discussed low-salt diet. Discussed exercise on regular basis. Will continue to monitor Encounters Date Type Department Care Team Description 01/18/2025 Results Follow-Up [facility] Cardiology [address] [facility] [address] [place] [address] Katharine Guzman MD Basic metabolic panel, CBC with auto differential 01/18/2025 Nurse Triage [facility] Internal Medicine [address] [facility] [address] [place] [phone] Carlos James MD 01/17/2025 Orders Only [facility] Scanning, Provider 01/10/2025 10:10 AM CDT - 01/10/2025 11:59 PM CDT Hospital Encounter [facility] Radiology [address] [place] [address] Discharge Disposition: Discharge to home or self care 01/10/2025 10:09 AM CDT - 01/10/2025 11:59 PM CDT Hospital Encounter [facility] Radiology [address] [place] [address] Discharge Disposition: Discharge to home or self care 01/10/2025 10:09 AM CDT - 01/10/2025 11:59 PM CDT Hospital Encounter [facility] Radiology [address] [place] [address] Discharge Disposition: Discharge to home or self care 01/10/2025 10:09 AM CDT - 01/10/2025 11:59 PM CDT Hospital Encounter [facility] Cardiac Diagnostic Lab [address] [place] [address] Coronary artery disease involving yavapai-apache coronary artery of yavapai-apache heart without angina pectoris; SCALES (dyspnea on exertion) Discharge Disposition: Discharge to home or self care 01/10/2025 10:09 AM CDT - 01/10/2025 11:59 PM CDT Hospital Encounter [facility] Radiology [address] [place] [address] Coronary artery disease involving yavapai-apache coronary artery of yavapai-apache heart without angina pectoris; SCALES (dyspnea on exertion) Discharge Disposition: Discharge to home or self care 01/10/2025 Telephone [facility] Cardiology [address] [place] [address] 8th [place] [address] [place] [address] Katharine Guzman MD Stress Test Results 01/04/2025 8:30 AM CDT Office Visit [facility] Internal Medicine [address] [place] [phone] Carlos James MD Benign prostatic hyperplasia without lower urinary tract symptoms (Primary Dx); Dyslipidemia; History of CVA (cerebrovascular accident); Hypertension, essential; Hypogonadism in male; Persistent atrial fibrillation (HCC); Pulmonary nodules; Type 2 diabetes mellitus with chronic kidney disease, without long-term current use of insulin, unspecified CKD stage (HCC); Prostate cancer screening 12/08/2024 Results Follow-Up [facility] Cardiology [address] [place] [address] 8th [place] [address] [place] [address] Katharine Guzman MD Transthoracic Echo (TTE) Complete W Doppler/CF, NM MPI SPECT (Rest and/or Stress) Multiple Studies 12/05/2024 7:00 AM CDT - 12/05/2024 11:59 PM CDT Hospital Encounter [facility] Cardiac Diagnostic Lab [address] [facility] [address] [place] [address] Coronary artery disease involving yavapai-apache coronary artery of yavapai-apache heart without angina pectoris; SCALES (dyspnea on exertion) Discharge Disposition: Discharge to home or self care 11/10/2024 Telephone [facility] Medicine Cardiology [address] [facility] 8th [place] [address] [place] [address] Katharine Guzman MD Scheduling Testing/Treatment 11/03/2024 8:30 AM CDT Office Visit [facility] Cardiology [address] [facility] 8th [place] [address] [place] [address] Paul Peng MD Persistent atrial fibrillation (HCC) (Primary Dx) 11/03/2024 Results Follow-Up [facility] Electrophysiology Lab [address] [place] [address] Paul Peng MD ECG 12 lead from Last 3 Months Immunizations Immunization Administration Dates Next Due Influenza, Unspecified 04/01/2024(Deferr ed: Patient Refused),12/31/2023(Deferred: Patient Refused),09/29/2023(Deferred: Patient Refused),03/31/2023(Deferred: Patient decision),06/04/2021(Deferred: Patient Refused) Tdap 07/18/2014 ZOSTER Recombinant 12/17/2021,10/10/2021 Surgical History Surgery Date Site/Laterality Comments HEART SURGERY 10/14/2014 - 11/13/2014 Aortic valve replacement BACK SURGERY 2 back surgery WRIST SURGERY left HAND SURGERY right EYE SURGERY 03/16/2020 - 03/15/2021 Right SINUS SURGERY SHOULDER SURGERY 11/05/2021 left shoulder replacement CARPAL TUNNEL RELEASE 03/03/2023 Right RT. CTR TRIGGER FINGER RELEASE 03/03/2023 Left LT. THUMB FTS RELEASE CARDIAC ELECTROPHYSIOLOGY PROCEDURE 06/24/2024 N/A Procedure: ABLATION ATRIAL FIBRILLATION (A-FIB) VIA PULMONARY VEIN ISOLATION [id number]; Surgeon: Paul Peng MD; Location: [facility] EP LAB; Service: Cardiovascular; Laterality: N/A; Medical devices from this surgery are in the Medical Devices section. CARDIAC ELECTROPHYSIOLOGY PROCEDURE 06/24/2024 N/A Procedure: ABLATION ATRIAL FIBRILLATION ADDITIONAL LINE OR FOCI (+) [id number]; Surgeon: Paul Peng MD; Location: [facility] EP LAB; Service: Cardiovascular; Laterality: N/A; Medical devices from this surgery are in the Medical Devices section. CARDIAC VALVE REPLACEMENT JOINT REPLACEMENT SPINE SURGERY CATARACT EXTRACTION Medical History Medical History Date Comments Hypertension Hyperlipidemia Back pain Pain in right knee Depression CVA (cerebral vascular accident) (HCC) TIA Arrhythmia Afib Cataract 06/19/[address] Martino Dizziness Oral lesion Family History Medical History Relation Name Comments Cancer Brother p Cancer Father p Heart disease Father p Hypertension Father p Stroke Father p Family history of cerebrovascular accident - (Added by TW Conv) Cancer Mother p Hypertension Mother p Anesthesia problems Neg Hx Malig Hypertension Neg Hx Malig Hyperthermia Neg Hx Pseudochol deficiency Neg Hx Relation Name Status Comments Brother p Daughter Father p throat cancer Mother p Other 7 brothers 2 so ns 1 daughter Social History Tobacco Use Types Packs/Day Years Used Date Smoking Tobacco: Never Passive Smoke Exposure: Past Smokeless Tobacco: Never Tobacco Cessation:Counseling Given: Not Answered Alcohol Use Standard Drinks/Week Comments Not Currently [...] on file Legal Sex Male 10:52 AM DIGITAL MARKETING LEAD Gender Identity Not on file Sexual Orientation Not on file Last Filed Vital Signs Vital Sign Reading Time Taken Comments Blood Pressure 109/76 01/10/2025 11:11 AM CDT Pulse 83 01/10/2025 11:11 AM CDT Temperature 36.6 C (97.8 F) 01/04/2025 8:08 AM CDT Respiratory Rate 18 01/04/2025 8:08 AM CDT Oxygen Saturation 97% 01/04/2025 8:08 AM CDT Inhaled Oxygen Concentration - - Weight 97.7 kg (215 lb 6.4 oz) 01/04/2025 8:08 A M CDT Height 175.3 cm (5' 9) 01/04/2025 8:08 AM CDT Body Mass Index 31.81 01/04/2025 8:08 AM CDT Plan of Treatment Upcoming Encounters Date Type Department Care Team (Latest Contact Info) Description 01/27/2025 9:11 AM DIGITAL MARKETING LEAD Hospital Encounter [facility] Vascular Center [address] [place] [address] Feliciano Pérez MD [address] [facility] [address] [place] [address] Abnormal stress test; Coronary artery disease involving yavapai-apache coronary artery of yavapai-apache heart without angina pectoris; SCALES (dyspnea on exertion) 01/27/2025 9:11 AM DIGITAL MARKETING LEAD - 01/27/2025 10:22 AM DIGITAL MARKETING LEAD Surgery [facility] [address] [place] [phone] Feliciano Pérez MD [address] [address] LEFT HEART CATHETERIZATION WITH CORONARY ANGIOGRAPHY AND WITH OR WITHOUT LEFT VENTRICULOGRAM [address] Health Maintenance Due Date Last Done Comments Hepatitis B Screening 1978 Well Visit 65+ 08/15/2023 Albumin Creatinine Ratio, Urine 08/28/2024 4, 04/04/2023 Covid-19 Vaccine (2024-2 6 season) 2024 07/14/2021, 06/23/2021 Foot Exam 12/30/2024 12/31/2023 Hemoglobin A1C 02/12/2025 08/13/2024, 04/0 11/2024, 03/07/2024, Additional history exists Fall Risk Assessment 06/30/2025 06/30/2024, 06/25/2024, 04/01/2024, Additional history exists Dilated Eye Exam 07/21/2025 07/21/2024, 06/11/2023 Lipid Panel 08/13/2025 08/13/2024, 02/14, 08/29/2023, Additional history exists Depression Screening 01/04/2026 01/04/2025, 06/30/2024, 04/01/2024, Additional history exists eGFR 01/17/2026 01/17/2025, 07/16, 06/22/2024, Additional history exists Prostate Cancer Screening-PSA 03/07/2026, 04/04/2023, 02/08/2022, Additional history exists Colon Cancer Screening-Colonoscopy 05/02/2027 05/02/2022, 02/28/2015 DTaP/Tdap/Td Vaccine Discontinued 07/18/2014 Hepatitis C Screening Completed 03/22/2021 Zoster Vaccine Completed 12/17/2021, 10/10/2021 Colon Cancer Screening-CT Colonography Discontinued 05/02/2022, 02/28/2015 Colon Cancer Screening-DNA Stool Discontinued 05/02/19, 02/28/2015 Colon Cancer Screening-FIT Discontinued 05/02/2022, Colon Cancer Screening-Sigmoidoscopy Discontinued 05/02/2022, 02/28/2015 Influenza Vaccine Discontinued Pneumococcal vaccine 65+ Discontinued Medical Devices Implanted Type Area Cobbler Apprentice Device Identifier Shelf Expiration Date Model / Serial / Lot [employer] Vascade Mvp 6-12fr Venous Closure [id number] - [id number] - [id number] Implanted:Qty: 1 on 06/24/2024 by Simon Chaudhary MD at [facility] Collagen Right: Femoral Vein [employer] 05/12/2026 [id number] / [id number] / [id number] [employer] Device Vascular Closure Vascade Mvp Xl 10-12fr Venous Strl [id number] - [id number] - [id number] Implanted:Qty: 1 on 06/24/2024 by Simon Chaudhary MD at [facility] Collagen Right: Femoral Vein [employer] 02/23/2026 [id number] / [id number] / [id number] [employer] Simplex P Radiopaque Full Dose Cement Bone Sterile 6191-1-010 - [id number] Implanted:Qty: 1 on 11/05/2021 by Derek Diaz MD at [facility] [employer] [id number] 02/13/2024 [id number] / / [employer] Global Ap 52mm [place] Glenoid Peg Fixation Premieron [id number] - [id number] Implanted:Qty: 1 on 11/05/2021 by Derek Diaz MD at [facility] [employer] [id number] / / Depuy [employer] Head Humeral Shoulder Stemless Size 52 Global Icon [id number] - [id number] Implanted:Qty: 1 on 11/05/2021 by Derek Diaz MD at [facility] [employer] [id number] / / [employer]uy [employer] Implant Shoulder [place] Plate Stemless Size 52 Global Icon [id number] - [id number] Implanted:Qty: 1 on 11/05/2021 by Derek Diaz MD at [facility] [employer] [id number] / / Procedures Procedure Name Priority Date/Time Associated Diagnosis Comments CBC WITH AUTO DIFFERENTIAL Routine 01/17/2025 1:15 PM DIGITAL MARKETING LEAD Abnormal stress test Coronary artery disease involving yavapai-apache coronary artery of yavapai-apache heart without angina pectoris SCALES (dyspnea on exertion) Pre-procedure lab exam BASIC METABOLIC PANEL Routine 01/17/2025 1:15 PM DIGITAL MARKETING LEAD Abnormal stress test Coronary artery disease involving yavapai-apache coronary artery of yavapai-apache heart without angina pectoris SCALES (dyspnea on exertion) Pre-procedure lab exam SCAN - LABS 01/17/2025 NM MPI SPECT (REST AND/OR STRESS) MULTIPLE STUDIES Schedule Routine, Read Routine (OP Routine) 01/10/2025 1:33 PM CDT Coronary artery disease involving yavapai-apache coronary artery of yavap[place]-apache heart without angina pectoris SCALES (dyspnea on exertion) STRESS TEST FOR DUAL READ Schedule Routine, Read Routine (OP Routine) 01/10/2025 11:17 AM CDT Coronary artery disease involving yavapai-apache coronary artery of yavap[place]-apache heart without angina pectoris SCALES (dyspnea on exertion) TRANSTHORACIC ECHO (TTE) COMPLETE W DOPPLER/CF WO CONTRAST Routine 12/05/2024 8:08 AM CDT Coronary artery disease involving yavapai-apache coronary artery of y[place]ap[place]-apache heart without angina pectoris SCALES (dyspnea on exertion) ECG 12-LEAD Routine 11/03/2024 8:31 AM CDT Persistent atrial fibrillation (HCC) HEMOGLOBIN A1C Routine 08/13/2024 10:25 AM CDT Hyperglycemia LIPID PANEL Routine 08/13/2024 10:25 AM CDT Dyslipidemia Hyperglycemia HM DIABETES EYE EXAM Routine 07/21/2024 PSA SCREEN Routine 03/07/2024 11:32 AM DIGITAL MARKETING LEAD Prostate cancer screening ALBUMIN CREATININE RATIO, URINE Routine 08/29/2023 10:40 AM CDT Controlled type 2 diabetes mellitus without complication, without long-term current use of insulin (HCC) COLONOSCOPY Routine 05/02/2022 HEPATITIS C ANTIBODY Routine 03/22/2021 9:26 AM DIGITAL MARKETING LEAD Encounter for hepatitis C screening test for low risk patient from Last 3 Months or Most Recently Relevant to Health Maintenance Results * (ABNORMAL) CBC with auto differential (01/17/2025 1:15 PM DIGITAL MARKETING LEAD) WBC 14.8(H) 3.4 - 10.8 x10E3/uL [facility] - 01 RBC 4.80 4.14 - 5.80 x10E6/uL [facility] - 01 Hgb 13.5 13.0 - 17.7 g/dL [facility] - 01 Hct 41.8 37.5 - 51.0 % [facility] - 01 MCV 87 79 - 97 fL [facility] - 01 MCH 28.1 26.6 - 33.0 pg [facility] - 01 MCHC 32.3 31.5 - 35.7 g/dL [facility] - 01 Rdw 13.5 11.6 - 15.4 % [facility] - 01 Platelets 242 150 - 450 x10E3/uL [facility] - 01 Neutrophils pct 81 Not Estab. % [facility] - 01 Lymphs pct 10 Not Estab. % [facility] - 01 Monocytes pct 8 Not Estab. % [facility] - 01 Eosinophils pct 0 Not Estab. % [facility] - 01 Basophil pct 0 Not Estab. % [facility] - 01 Neutrophil abs 11.9(H) 1.4 - 7.0 x10E3/uL [facility] - 01 Lymphs (Absolute) 1.5 0.7 - 3.1 x10E3/uL [facility] - 01 Monocyte abs 1.2(H) 0.1 - 0.9 x10E3/uL [facility] - 01 Eosinophils, abs 0.0 0.0 - 0.4 x10E3/uL [facility] - 01 Basophils, abs 0.0 0.0 - 0.2 x10E3/uL [facility] - 01 Immature Granulocytes 1 Not Estab. % [facility] - 01 Immature Grans (Abs) 0.1 0.0 - 0.1 x10E3/uL [facility] - 01 Blood 01/17/2025 1:15 PM DIGITAL MARKETING LEAD 01/17/2025 Narrative [facility] - 01/18/2025 7:09 AM DIGITAL MARKETING LEAD Performed at: - [facility] [address], [place], [place] [id number] Food And Beverage Cashier: Nicholas Nice PhD, Phone: [phone] us Katharine Guzman MD LAB BLOOD ORDERABLES Final Re sult [facility] - 01 * (ABNORMAL) Basic metabolic panel (01/17/2025 1:15 PM DIGITAL MARKETING LEAD) Glucose 134(H) 70 - 99 mg/dL [facility] - 01 BUN 14 8 - 27 mg/dL [facility] - 01 Creatinine, Serum 0.60(L) 0.76 - 1.27 mg/dL [facility] - 01 eGFR 106 >59 mL/min/1.7 3 [facility] - 01 BUN/creat ratio 23 10 - 24 [facility] - 01 Sodium 137 134 - 144 mmol/L [facility] - 01 Potassium, sr 4.4 3.5 - 5.2 mmol/L [facility] - 01 Chloride 101 96 - 106 mmol/L [facility] - 01 CO2 19(L) 20 - 29 mmol/L [facility] - 01 Calcium 8.5(L) 8.6 - 10.2 mg/dL [facility] - 01 Blood 01/17/2025 1:15 PM DIGITAL MARKETING LEAD 01/17/2025 Narrative [facility] - 01/18/2025 7:09 AM DIGITAL MARKETING LEAD Performed at: 01 - [facility] [id number] Food And Beverage Cashier: Nicholas Nice PhD, Phone: [phone] us Katharine Guzman MD LAB BLOOD ORDERABLES [facility] - 01 * SCAN - LABS (01/17/2025) us Provider Scanning Final Result * NM MPI SPECT (Rest and/or Stress) Multiple Studies (01/10/2025 1:33 PM CDT) Anatomical Region Laterality Modality Body N/A Nuclear Medicine 01/10/2025 2:31 PM CDT Impressions 01/10/2025 2:38 PM CDT 1. Evidence of moderate size and - severity ischemia involving the inferolateral wall during pharmacologic stress. 2. Normal rest perfusion. 3. Normal left ventricular size and systolic wall motion. Drs. Galloway and Regis also participated in the interpretation of this examination. Dictated by: Dann Thornton M.D. The radiology attending physician has personally reviewed this study, and had reviewed and/or edited this written report and agrees with it. Electronically signed by: Griffin Martinez M.D. Narrative 01/10/2025 2:38 PM CDT EXAMINATION: MYOCARDIAL IMAGING (PHARMACOLOGIC-STRESS AND REST/SPECT/CT) DATE OF STUDY: 01/10/2025 RADIOPHARMACEUTICAL: 9.67 mCi, 35.03 mCi Tc-99m tetrofosmin i.v. HISTORY: 64-year-old patient with history of a bioprosthetic aortic valve replacement in 2014 and atrial fibrillation status post ablation 06/24/2024. Evaluate for ischemia and/or myocardial infarction. The patient's body mass index (BMI) was 31.8. The electrocardiographic portion of today's exercise stress examination was negative for ischemia. FINDINGS: Both stress and rest imaging were performed, in the following order: stress/rest FINDINGS: An intravenous infusion of 0.4 mg Regadenoson (A2A adenosine receptor agonist Lexiscan, infused intravenously over approximately 10 seconds, followed approximately after another 20 seconds by tracer infusion) was performed without low level exercise on the date indicated above. A complete description of the stress test and electrocardiographic results documented by the supervising road freight brake coupler is available in the [facility] electronic medical record. Standard myocardial perfusion images were obtained after tracer injection at the peak effect of the drug. Low-dose CT images spanning the heart were obtained for attenuation correction. Rest Imaging: Standard myocardial perfusion images were obtained after resting tracer injection. Low-dose CT images spanning the heart were obtained for attenuation correction. COMPARISON: Myocardial imaging 10/19/2019. The projection images were reviewed for image quality, and reveal no significant artifacts. Moderate size and moderate severity reversible perfusion defect of the inferolateral left ventricular wall, consistent with myocardial ischemia. Normal rest perfusion. Gated post-stress images demonstrate normal left ventricular volume, visually normal left ventricular wall motion and underestimated ejection fraction of 40 % (normal >45%). Additional gated rest images demonstrate normal left ventricular wall motion and a resting left ventricular ejection fraction of 49 %. Incidental findings on the low-dose CT images: Lungs are clear, s.p. sternotomy and aortic valve placement. no appreciable coronary and/or arterial calcifications, calcified nodule perihilar left, spondylosis. Procedure Note Griffin Martinez MD - 01/10/2025 EXAMINATION: MYOCARDIAL IMAGING (PHARMACOLOGIC-STRESS AND REST/SPECT/CT) DATE OF STUDY: 01/10/2025 RADIOPHARMACEUTICAL: 9.67 mCi, 35.03 mCi Tc-99m tetrofosmin i.v. HISTORY: 64-year-old patient with history of a bioprosthetic aortic valve replacement in 2014 and atrial fibrillation status post ablation 06/24/2024. Evaluate for ischemia and/or myocardial infarction. The patient's body mass index (BMI) was 31.8. The electrocardiographic portion of today's exercise stress examination was negative for ischemia. FINDINGS: Both stress and rest imaging were performed, in the following order: stress/rest FINDINGS: An intravenous infusion of 0.4 mg Regadenoson (A2A adenosine receptor agonist Lexiscan, infused intravenously over approximately 10 seconds, followed approximately after another 20 seconds by tracer infusion) was performed without low level exercise on the date indicated above. A complete description of the stress test and electrocardiographic results documented by the supervising road freight brake coupler is available in the [facility] electronic medical record. Standard myocardial perfusion images were obtained after tracer injection at the peak effect of the drug. Low-dose CT images spanning the heart were obtained for attenuation correction. Rest Imaging: Standard myocardial perfusion images were obtained after resting tracer injection. Low-dose CT images spanning the heart were obtained for attenuation correction. COMPARISON: Myocardial imaging 10/19/2019. The projection images were reviewed for image quality, and reveal no significant artifacts. Moderate size and moderate severity reversible perfusion defect of the inferolateral left ventricular wall, consistent with myocardial ischemia. Normal rest perfusion. Gated post-stress images demonstrate normal left ventricular volume, visually normal left ventricular wall motion and underestimated ejection fraction of 40 % (normal >45%). Additional gated rest images demonstrate normal left ventricular wall motion and a resting left ventricular ejection fraction of 49 %. Incidental findings on the low-dose CT images: Lungs are clear, s.p. sternotomy and aortic valve placement. no appreciable coronary and/or arterial calcifications, calcified nodule perihilar left, spondylosis. IMPRESSION: 1. Evidence of moderate size and - severity ischemia involving the inferolateral wall during pharmacologic stress. 2. Normal rest perfusion. 3. Normal left ventricular size and systolic wall motion. Drs. Galloway and Regis also participated in the interpretation of this examination. Dictated by: Dann Thornton M.D. The radiology attending physician has personally reviewed this study, and had reviewed and/or edited this written report and agrees with it. Electronically signed by: Griffin Martinez M.D. us Katharine Guzman MD IMG NM PROCEDURES Final Resul t * Stress Test for Myocardial Perfusion (01/10/2025 11:17 AM CDT) Anatomical Region Laterality Modality Nuclear Medicine 01/10/2025 10:5 0 AM CDT Narrative 01/10/2025 2:15 PM CDT [facility] [place] [address] LEXISCAN STRESS Patient Name: MARIBELL BUSTILLOS M : 1960 (64y 4m) Sex: M Study Date: 01/10/2025 10:50:00 AM Ht(Inch): 69 Wt(Lb): 215 BSA: 2.18 Tech: Location: [facility] Order Provider: KATHARINE GUZMAN BMI: 31.75 Ref Provider: KATHARINE GUZMAN PROCEDURES: Stress Report: Cardiovascular Stress Test performed in conjunction with Myocardial Perfusion Imaging (MPI) with SPECT at rest and post Regadenoson (Lexiscan) infusion. Results of MPI are reported separately. Protocol: NW Lexiscan. INDICATIONS: I25.10 Atherosclerotic heart disease of [place] coronary artery without angina pectoris and R06.09 Other forms of dyspnea. FINDINGS: Performed By: Rosmery Beck RN. Supervising Physician: Dr. Debra Galloway. Cardiac History: History of AVR, A-Fib, Ablation, LBBB. Cardiac Risk Factors: Diabetes and hypertension. Other History: CVA. Pre-test Chest Pain: No Chest Pain. Physical Exam: Allergies: NKDA. Cardiac Medications: Norvasc, Lipitor, Zetia, Xarelto. All Normal. Procedure Data: Peak HR: 85 bpm Peak BP: 108/69 mmHg Predicted Maximal HR: 154 bpm Percent Max Predicted HR Achieved: 70 % 85% of MPHR: 130.9 bpm Medications: Regadenoson: 0.4 mg/5 ml NS. Baseline ECG: Rhythm: Sinus. Conduction Defects: LBBB. Other Abnormalities: Poor R wave progression. Chest Pain: No chest pain. Heart Rate Response: Heart rate response is appropriate. Blood Pressure Response: Blood pressure response is appropriate. Reason For Termination: Protocol Complete. Cardiac Symptoms With Stress: Symptoms with stress were None. ECG Abnormalities During/After Stress: ECG changes could not be interpreted due to BBB. New Arrhythmias Developed During/After Stress: No new arrhythmias developed during or after stress. LEXISCAN WITHOUT EXERCISE: TIME (min) HR (bpm) BP (mmHg) Baseline 89 104/71 Recovery 1 103 124/69 Recovery 2 93 113/70 Recovery 3 85 108/69 Recovery 4 88 108/69 Recovery 5 89 Recovery 6 83 109/76 CONCLUSIONS: 1. Indeterminate ECG evidence of ischemia after regadenoson stress due to the presence of conduction abnormality. ATTESTATION: I have personally reviewed the study and the fellow's interpretation and agreed with the findings and conclusions. Electronically Signed By: Kris Tafoya Jr., M.D. 01/10/2025 12:58:47 PM CDT Electronically Signed By: Kris Tafoya Jr., M.D. 01/10/2025 12:58:47 PM CDT Procedure Note Kris Tafoya MD PhD - 01/10/2025 [facility] [place] [address] [place] [address] LEXISCAN STRESS Patient Name: MARIBELL BUSTILLOSEd : 1960 (64y 4m) Sex: M Study Date: 01/10/2025 10:50:00 AM Ht(Inch): 69 Wt(Lb): 215 BSA: 2.18 Tech: Location: [facility] Order Provider: KATHARINE GUZMAN BMI: 31.75 Ref Provider: KATHARINE GUZMAN PROCEDURES: Stress Report: Cardiovascular Stress Test performed in conjunction withMyocardial Perfusion Imaging (MPI) with SPECT at rest and post Regadenoson (Lexiscan)infusion. Results of MPI are reported separately. Protocol: NW Lexiscan. INDICATIONS: I25.10 Atherosclerotic heart disease of [place] coronary artery withoutangina pectoris and R06.09 Other forms of dyspnea. FINDINGS: Performed By: Rosmery Beck RN. Supervising Physician: Dr. Debra Galloway. Cardiac History: History of AVR, A-Fib, Ablation, LBBB. Cardiac RiskFactors: Diabetes and hypertension. Other History: CVA. Pre-test Chest Pain: No ChestPain. Physical Exam: Allergies: NKDA. Cardiac Medications: Norvasc, Lipitor,Zetia, Xarelto. All Normal. Procedure Data: Peak HR: 85 bpm Peak BP: 108/69 mmHg Predicted Maximal HR: 154 bpm Percent Max Predicted HR Achieved: 70 % 85% of MPHR: 130.9 bpm Medications: Regadenoson: 0.4 mg/5 ml NS. Baseline ECG: Rhythm: Sinus. Conduction Defects: LBBB. Other Abnormalities: Poor R wave progression. Chest Pain: No chest pain. Heart Rate Response: Heart rate response is appropriate. Blood Pressure Response: Blood pressure response is appropriate. Reason For Termination: Protocol Complete. Cardiac Symptoms With Stress: Symptoms with stress were None. ECG Abnormalities During/After Stress: ECG changes could not be interpreted due to BBB. New Arrhythmias Developed During/After Stress: No new arrhythmias developed during or after stress. LEXISCAN WITHOUT EXERCISE: TIME (min) HR (bpm) BP (mmHg) Baseline 89 104/71 Recovery 1 103 124/69 Recovery 2 93 113/70 Recovery 3 85 108/69 Recovery 4 88 108/69 Recovery 5 89 Recovery 6 83 109/76 CONCLUSIONS: 1. Indeterminate ECG evidence of ischemia after regadenoson stress due tothe presence of conduction abnormality. ATTESTATION: I have personally reviewed the study and the fellow's interpretation andagreed with the findings and conclusions. Electronically Signed By: Kris Tafoya Jr., M.D. 01/10/2025 12:58:47 PM CDT Electronically Signed By: Kris Tafoya Jr., M.D. 01/10/2025 12:58:47 PM CDT us Katharine Guzman MD CV STRESS PROCEDURES Final Re sult * TRANSTHORACIC ECHO (TTE) COMPLETE W DOPPLER/CF WO CONTRAST (12/05/2024 8:08 AM CDT) EF Mod BP 57 % CONS SCIMAGE Anatomical Region Laterality Modality Ultrasound 12/05/2024 7:09 AM CDT Narrative 12/05/2024 8:23 AM CDT [facility] [place] [address] Transthoracic Echocardiographic Report Patient Name: MARIBELL BUSTILLOS M : 1960 (64y 3m) Sex: M Study Date: 12/05/2024 07:09:44 AM Ht(Inch): 69 Wt(Lb): 233.91 BSA: 2.27 Digital Marketing Lead: Kilo Pinto RDCS Location: [facility] Order Provider: KATHARINE GUZMAN Heart Rate: 64 BMI: 34.54 BP: 142 / 78 Ref Provider: KATHARINE GUZMAN PROCEDURES: Echocardiographic Report: Transthoracic complete echo with strain imaging, 2D, spectral and tissue Doppler, color flow Doppler, M-mode. INDICATIONS: Coronary Artery Disease; Shortness of Breath; Hx of Aortic Valve Replacement. CONCLUSIONS: 1. Normal left ventricular size based on volume index. Concentric LV hypertrophy. Normal left ventricular systolic function. The Ejection Fraction (Her's) is measured at 57 %. The average global longitudinal strain is abnormal. 2. Resting Segmental Wall Motion Analysis: Total wall motion score is 1.06. There is hypokinesis of the apical cap. The remaining left ventricular segments demonstrate normal wall motion. 3. Right ventricular dilatation. Normal right ventricular systolic function. 4. A bioprosthetic valve is present in the aortic position. The aortic prosthesis demonstrates normal transvalvular gradient for valve type and size. 5. The estimated right ventricular systolic pressure is 25 mmHg. ATTESTATION: I have personally reviewed and interpreted this study without fellow or resident. DISCLAIMER: The study images and the final report will be retained in the patient chart by the [facility] for the legally required time period. This chart constitutes the legal record of any testing performed. FINDINGS: Left Ventricle: Normal left ventricular size based on volume index. Concentric LV hypertrophy. Normal left ventricular systolic function. The Ejection Fraction (Her's) is measured at 57 %. The average global longitudinal strain is abnormal. The LV global strain is: -12.3 %. Resting Segmental Wall Motion Analysis: Total wall motion score is 1.06. There is hypokinesis of the apical cap. The remaining left ventricular segments demonstrate normal wall motion. Right Ventricle: Right ventricular dilatation. Normal right ventricular systolic function. Left Atrium: The left atrium is normal in size. Right Atrium: The right atrium is normal in size. Mitral Valve: Normal mitral valve structure. No mitral regurgitation. No stenosis present. Aortic Valve: The mean transaortic gradient is 9 mmHg. The aortic valve area by the continuity equation (using VTI) is 2.27 cm2. Aortic valve dimensionless index is 0.42. A bioprosthetic valve is present in the aortic position. The aortic prosthesis demonstrates normal transvalvular gradient for valve type and size. Tricuspid Valve: Normal Tricuspid valve structure. Mild tricuspid regurgitation. The estimated right ventricular systolic pressure is 25 mmHg. Pulmonic Valve: Normal Pulmonic Valve Structure. Mild pulmonic regurgitation. Pericardium: Normal pericardium without pericardial effusion. Aorta: Normal aortic root size at sinuses of Valsalva. Normal aortic root size when indexed. The ascending aorta is normal in size when indexed. IVC: IVC is normal in size. PASP: Normal estimated pulmonary artery systolic pressure. Rhythm: Normal Sinus rhythm was seen during the study. MEASUREMENTS: 2D/MM Value Range Doppler Value Range LVIDd 2D 4.82 cm [ 4.20 - 5.80 ] AV Peak Jeremie 2.2 m/s [ 1.0 - 1.7 ] LVIDs 2D 3.40 cm [ 2.50 - 4.00 ] AV Peak PG 19.36 mmHg IVSd 2D 1.65 cm [ 0.60 - 1.00 ] AV Mean PG 9 mmHg LVPWd 2D 1.55 cm [ 0.60 - 1.00 ] AV VTI 43.2 cm LV Thickness Ratio 1.1 LVOT Peak Jeremie 0.7 m/s [ 0.7 - 1.1 ] LV FS 2D 29.49 % [ 25.00 - 43.00 ] LVOT Peak PG 1.96 mmHg LV Mass 2D 340.20 g LVOT Mean PG 1 mmHg LV Mass Index 2D 149.69 g/m2 LVOT VTI 18.1 cm RWT 0.64 LVOT Diam 2.63 cm EDV Mod BP 161.72 ml [ 62.00 - 150.00 ] IFRAH VTI 2.27 cm2 LV EDV Index 71.16 ml/m2 LVOT/AV VTI 0.42 - Dimensionless index (DVI) ESV Mod BP 68.99 ml [ 21.00 - 61.00 ] MV E Peak Jreemie 0.6 m/s [ 0.6 - 1.3 ] EF Mod BP 57 % [ 52 - 72 ] MV A Peak Jeremie 0.5 m/s [ 1.0 - 1.2 ] LV GLS -12.3 % [ -25.0 - -18.0 ] MV E/A 1.2 ratio [ 0.8 - 1.5 ] LA Length 4C 4.82 cm MV Decel Time 209.81 msec [ 104.00 - 258.00 ] LA Length 2C 6.00 cm Med E` Jeremie 6.2 cm/sec [ 8.0 - 25.0 ] LA Volume BP 75.02 ml Lat E` Jeremie 7.1 cm/sec [ 10.0 - 25.0 ] LA Volume Index 33.01 ml/m2 [ 16.00 - 34.00 ] Average E/E` 9.02 RV Base Dimen 2D 4.3 cm [ 2.5 - 4.2 ] RV S` 8.69 cm/sec TAPSE 1.66 cm [ 1.71 - 5.00 ] TR Peak Jeremie 2.5 m/s [ 1.0 - 2.8 ] RA Volume 55.53 ml TR Peak PG 25.0 mmHg RA Volume Index 24.43 ml/m2 PV Peak Jeremie 1.0 m/s [ 0.4 - 0.8 ] AoR Diam 2D 3.49 cm [ 3.10 - 3.70 ] PV Peak PG 4.00 mmHg Ao Root Index 1.54 cm/m2 [ 1.00 - 2.00 ] PI ED Jeremie 76.26 m/sec Asc Ao Diam 2D 3.41 cm Asc Ao Index 1.50 cm/m2 Electronically Signed By: Gerald Nguyen MD 12/05/2024 8:22:59 AM CDT Wall Motion Analysis - Resting Procedure Note Gerald Nguyen MD - 12/05/2024 [facility] [place] [address] Transthoracic Echocardiographic Report Patient Name: MARIBELL BUSTILLOS M : 1960 (64y 3m) Sex: M Study Date: 12/05/2024 07:09:44 AM Ht(Inch): 69 Wt(Lb): 233.91 BSA: 2.27 Digital Marketing Lead: Kilo Pinto RDCS Location: [facility] Order Provider:KATHARINE GUZMAN Heart Rate: 64 BMI: 34.54 BP: 142 / 78 Ref Provider: KATHARINE GUZMAN PROCEDURES: Echocardiographic Report: Transthoracic complete echo with strain imaging,2D, spectral and tissue Doppler, color flow Doppler, M-mode. INDICATIONS: Coronary Artery Disease; Shortness of Breath; Hx of Aortic ValveReplacement. CONCLUSIONS: 1. Normal left ventricular size based on volume index. Concentric LVhypertrophy. Normal left ventricular systolic function. The Ejection Fraction (Her's) ismeasured at 57 %. The average global longitudinal strain is abnormal. 2. Resting Segmental Wall Motion Analysis: Total wall motion score is1.06. There is hypokinesis of the apical cap. The remaining left ventricular segmentsdemonstrate normal wall motion. 3. Right ventricular dilatation. Normal right ventricular systolicfunction. 4. A bioprosthetic valve is present in the aortic position. The aorticprosthesis demonstrates normal transvalvular gradient for valve type and size. 5. The estimated right ventricular systolic pressure is 25 mmHg. ATTESTATION: I have personally reviewed and interpreted this study without fellow orresident. DISCLAIMER: The study images and the final report will be retained in the patientchart by the [facility] Laboratory for the legally required time period. This chart constitutesthe legal record of any testing performed. FINDINGS: Left Ventricle: Normal left ventricular size based on volume index.Concentric LV hypertrophy. Normal left ventricular systolic function. The EjectionFraction (Her's) is measured at 57 %. The average global longitudinal strain is abnormal.The LV global strain is: -12.3 %. Resting Segmental Wall Motion Analysis: Total wall motion score is 1.06.There is hypokinesis of the apical cap. The remaining left ventricular segmentsdemonstrate normal wall motion. Right Ventricle: Right ventricular dilatation. Normal right ventricularsystolic function. Left Atrium: The left atrium is normal in size. Right Atrium: The right atrium is normal in size. Mitral Valve: Normal mitral valve structure. No mitral regurgitation. Nostenosis present. Aortic Valve: The mean transaortic gradient is 9 mmHg. The aortic valvearea by the continuity equation (using VTI) is 2.27 cm2. Aortic valve dimensionlessindex is 0.42. A bioprosthetic valve is present in the aortic position. The aorticprosthesis demonstrates normal transvalvular gradient for valve type and size. Tricuspid Valve: Normal Tricuspid valve structure. Mild tricuspidregurgitation. The estimated right ventricular systolic pressure is 25 mmHg. Pulmonic Valve: Normal Pulmonic Valve Structure. Mild pulmonicregurgitation. Pericardium: Normal pericardium without pericardial effusion. Aorta: Normal aortic root size at sinuses of Valsalva. Normal aortic rootsize when indexed. The ascending aorta is normal in size when indexed. IVC: IVC is normal in size. PASP: Normal estimated pulmonary artery systolic pressure. Rhythm: Normal Sinus rhythm was seen during the study. MEASUREMENTS: 2D/MM Value Range DopplerValue Range LVIDd 2D 4.82 cm [ 4.20 - 5.80 ] AV Peak Vel2.2 m/s [ 1.0 - 1.7 ] LVIDs 2D 3.40 cm [ 2.50 - 4.00 ] AV Peak PG19.36 mmHg IVSd 2D 1.65 cm [ 0.60 - 1.00 ] AV Mean PG9 mmHg LVPWd 2D 1.55 cm [ 0.60 - 1.00 ] AV VTI43.2 cm LV Thickness Ratio 1.1 LVOT Peak Vel0.7 m/s [ 0.7 - 1.1 ] LV FS 2D 29.49 % [ 25.00 - 43.00 ] LVOT Peak PG1.96 mmHg LV Mass 2D 340.20 g LVOT Mean PG1 mmHg LV Mass Index 2D 149.69 g/m2 LVOT VTI18.1 cm RWT 0.64 LVOT Diam2.63 cm EDV Mod BP 161.72 ml [ 62.00 - 150.00 ] IFRAH VTI2.27 cm2 LV EDV Index 71.16 ml/m2 LVOT/AV VTI0.42 - Dimensionless index (DVI) ESV Mod BP 68.99 ml [ 21.00 - 61.00 ] MV E Peak Vel0.6 m/s [ 0.6 - 1.3 ] EF Mod BP 57 % [ 52 - 72 ] MV A Peak Vel0.5 m/s [ 1.0 - 1.2 ] LV GLS -12.3 % [ -25.0 - -18.0 ] MV E/A1.2 ratio [ 0.8 - 1.5 ] LA Length 4C 4.82 cm MV Decel Rzhz880.81 msec [ 104.00 - 258.00 ] LA Length 2C 6.00 cm Med E` Vel6.2 cm/sec [ 8.0 - 25.0 ] LA Volume BP 75.02 ml Lat E` Vel7.1 cm/sec [ 10.0 - 25.0 ] LA Volume Index 33.01 ml/m2 [ 16.00 - 34.00 ] Average E/E`9.02 RV Base Dimen 2D 4.3 cm [ 2.5 - 4.2 ] RV S`8.69 cm/sec TAPSE 1.66 cm [ 1.71 - 5.00 ] TR Peak Vel2.5 m/s [ 1.0 - 2.8 ] RA Volume 55.53 ml TR Peak PG25.0 mmHg RA Volume Index 24.43 ml/m2 PV Peak Vel1.0 m/s [ 0.4 - 0.8 ] AoR Diam 2D 3.49 cm [ 3.10 - 3.70 ] PV Peak PG4.00 mmHg Ao Root Index 1.54 cm/m2 [ 1.00 - 2.00 ] PI ED Vel76.26 m/sec Asc Ao Diam 2D3.41 cm Asc Ao Index1.50 cm/m2 Electronically Signed By: Gerald Nguyen MD 12/05/2024 8:22:59 AM CDT Wall Motion Analysis - Resting us Katharine Guzman MD CV ECHO PROCEDURES Final Resu lt * ECG 12 lead (11/03/2024 8:31 AM CDT) Paul Peng MD ECG ORDERABLES Edited Result - Final * (ABNORMAL) Hemoglobin A1c (08/13/2024 10:25 AM CDT) Hgb A1C 6.6(H) 4.8 - 5.6 % [facility] - 01 Comment: Prediabetes: 5.7 - 6.4 Diabetes: >6.4 Glycemic control for adults with diabetes: <7.0 Blood 08/13/2024 10:2 5 AM CDT 08/13/2024 Narrative [facility] - 2024 7:08 AM CDT Performed at: [address] [place] [id number] [employer] Bever[employer] Cashier: Nicholas Nice PhD, Phone: [phone] Carlos James MD LAB BLOOD ORDERABLES Final Result Performing Organization Address [facility] de Phone Number [facility] - 01 * (ABNORMAL) Lipid panel (08/13/2024 10:25 AM CDT) Cholesterol 108 100 - 199 mg/dL [facility] - 01 Triglycerides 88 0 - 149 mg/dL [facility] - 01 HDL Cholesterol 29(L) >39 mg/dL [facility] - 01 VLDL 17 5 - 40 mg/dL [facility] - 01 LDL, calculated 62 0 - 99 mg/dL [facility] - 01 Blood 08/13/2024 10:2 5 AM CDT 08/13/2024 Narrative [facility] - 2024 7:08 AM CDT Performed at: [address] [place] [id number] [employer] Cashier: Nicholas Nice PhD, Phone: [phone] Carlos James MD LAB BLOOD ORDERABLES Final Result Performing Organization Address [facility] Co de Phone Number [facility] - 01 * HM DIABETES EYE EXAM (07/21/2024) SCRIBED DIABETIC DILATED EYE EXAM Normal Historical Provider HEALTH MAINTENANCE Final Result * PSA screen (03/07/2024 11:32 AM DIGITAL MARKETING LEAD) PSA 0.3 0.0 - 4.0 ng/mL [facility] - 01 Comment: Ross ECLIA methodology. According to the [place] [employer], Serum PSA should decrease and remain at undetectable levels after radical prostatectomy. The AUA defines biochemical recurrence as an initial PSA value 0.2 ng/mL or greater followed by a subsequent confirmatory PSA value 0.2 ng/mL or greater. Values obtained with different assay methods or kits cannot be used interchangeably. Results cannot be interpreted as absolute evidence of the presence or absence of malignant disease. Blood 03/07/2024 11:3 2 AM DIGITAL MARKETING LEAD 03/07/2024 Narrative [facility] - 03/08/2024 9:08 AM DIGITAL MARKETING LEAD Performed at: [facility] [id number] [employer] Cashier: Nicholas Ncie PhD, Phone: [phone] Carlos James MD LAB BLOOD ORDERABLES Final Result [facility] - 01 * Albumin Creatinine Ratio, Urine (08/29/2023 10:40 AM CDT) Creatinine ur 101.4 Not Estab. mg/dL [facility] - 01 Microalbumin, ur 10.5 Not Estab. ug/mL [facility] - 01 Microalbumin/cre at ratio 10 0 - 29 mg/g creat [facility] - 01 Comment: Normal: 0 - 29 Moderately increased: 30 - 300 Severely increased: >300 Urine 08/29/2023 10:4 0 AM CDT 08/29/2023 Narrative [facility] - 08/30/2023 7:07 AM CDT Performed at: [facility] [id number] [employer] Cashier: Nicholas Nice PhD, Phone: [phone] Carlos James MD LAB URINE ORDERABLES Final Result Performing Organization Address [facility] de Phone Number [facility] - * (ABNORMAL) Colonoscopy (05/02/2022) Anatomical Region Laterality Modality Other Impressions 05/02/2022 Repeat in 5 years Historical Provider MD ENDOSCOPY PROCEDURES Carlota l Result * Hepatitis C antibody (03/22/2021 9:26 AM DIGITAL MARKETING LEAD) Hep C Ab <0.1 0.0 - 0.9 s/co ratio [facility] - Comment: Negative: < 0.8 Indeterminate: 0.8 - 0.9 Positive: > 0.9 The CDC recommends that a positive HCV antibody result be followed up with a HCV Nucleic Acid Amplification test (555528). Blood specimen (specimen) 03/22/2021 9:26 AM DIGITAL MARKETING LEAD 03/22/2021 Narrative [facility] - 03/23/2021 7:08 AM DIGITAL MARKETING LEAD Performed at: [facility] [id number] [employer] Cashier: Nicholas Nice PhD, Phone: [phone] Carlos James MD LAB MICROBIOLOGY - GENERAL ORDERABLES Final Result Performing Organization Address [facility] de Phone Number [facility] - from Last 3 Months or Most Recently Relevant to Health Maintenance Insurance [facility] CHOICE PLUS [facility] HMO/PPO Address: [address] [address] [place] [address] [facility] CHOICE PLUS [facility] HMO/PPO Address: [address] [address] [place] [address] [facility] CHOICE PLUS [facility] HMO/PPO Address: [address] [address] [place] [address] MEDICARE Advance Directives For more information, please contact: [phone] * Full Code (Latest Code Status on File) Date Activated Date Inactivated Comments 06/24/2024 5:40 PM 06/25/2024 1:38 PM * Full Code Date Activated Date Inactivated Comments 11/05/2021 1:17 PM 11/06/2021 3:56 PM * Full Code Date Activated Date Inactivated Comments 11/11/2019 9:13 AM 11/11/2019 1:34 PM Care Teams Coiler Relationship Specialty Start Date End Date Carlos James MD [address] [facility] [address] [address] PCP - General 01/28/17
--- OUTSIDE RECORDS SUMMARY | 2025-01-19 09:54 | XMS_ITS | Encounter Summary ---
Author Organization [facility] Address [address] [place] [address] Phone Care Team Providers Care Personal Financial Advisor Name Role Phone Carlos James MD Primary Care Provider [phone] Encounter Details Date Type Department Care Team (Late st Contact Info) Description 01/18/2025 Results Follow-Up [facility] Cardiology [address] [facility] [address] [place] [address] Josh Guzman MD [address] [facility] [address] [place], [place] [id number] Basic metabolic panel, CBC with auto differential Social History Tobacco Use Types Packs/Day Years [...] on file Legal Sex Male 10:52 AM INVESTIGATIVE ANALYST Gender Identity Not on file Sexual Orientation Not on file documented as of this encounter Plan of Treatment Upcoming Encounters Date Type Department Care Team (Latest Contact Info) Description 01/27/2025 9:11 AM INVESTIGATIVE ANALYST Hospital Encounter [facility] Vascular [place] 1 [place] [address] Feliciano Pérez MD [address] [address] Abnormal stress test; Coronary artery disease involving [place] coronary artery of [place]ob[place] heart without angina pectoris; SCALES (dyspnea on exertion) 01/27/2025 9:11 AM INVESTIGATIVE ANALYST - 01/27/2025 10:22 AM INVESTIGATIVE ANALYST Surgery [facility] Vascular [address] [phone] Feliciano Pérez MD [address] [address] LEFT HEART CATHETERIZATION WITH CORONARY ANGIOGRAPHY AND WITH OR WITHOUT LEFT VENTRICULOGRAM [id number] documented as of this encounter Visit Diagnoses Not on filedocumented in this encounter Care Teams Personal Financial Advisor Relationship Specialty Start Date End Date Carlos James MD [address] [address] PCP - General 01/28/17 documented as of this encounter
--- OUTSIDE RECORDS SUMMARY | 2025-01-19 09:54 | XMS_ITS | Encounter Summary ---
Author Organization [facility] Address [address] [place] [address] Phone Care Team Providers Care Telegraph And Teletype Operator Name Role Phone Carlos James MD Primary Care Provider [phone] Encounter Details Date Type Department Care Team (Latest Contact Info) Description 07/17/2020 Orders Only [facility] Scanning, Provider Social History Tobacco Use Types Packs/Day Years Used Date Smoking Tobacco: Never Smokeless Tobacco: Never Alcohol Use Standard Drinks/Week Comments Not Currently 0 (1 standard drink = 0.6 oz pur e alcohol) socially PHQ-2 Answer Date Recorded PHQ-2 Total Score (If total score is 3 or more points, staff should administer the PHQ-9) 0 12/28/2019 Sex and Gender Information Value Date Recorded Sex Assigned at Not on file Legal Sex Male 10:52 AM ACCOUNT SERVICES REPRESENTATIVE Gender Identity Not on file Sexual Orientation Not on file documented as of this encounter Plan of Treatment Upcoming Encounters Date Type Department Care Team (Latest Contact Info) Description 01/27/2025 9:11 AM ACCOUNT SERVICES REPRESENTATIVE Hospital Encounter [facility] 1 [place] [address] Feliciano Pérez MD [address] [facility] [address] [place] [address] Abnormal stress test; Coronary artery disease involving [place] coronary artery of habematolel heart without angina pectoris; SCALES (dyspnea on exertion) 01/27/2025 9:11 AM ACCOUNT SERVICES REPRESENTATIVE - 01/27/2025 10:22 AM ACCOUNT SERVICES REPRESENTATIVE Surgery [facility] 1 [facility] [place] [address] Feliciano Pérez MD [address] [facility] [address] [place] [address] LEFT HEART CATHETERIZATION WITH CORONARY ANGIOGRAPHY AND WITH OR WITHOUT LEFT VENTRICULOGRAM [id number] documented as of this encounter Procedures Procedure Name Priority Date/Time Associated Diagnosis Comments SCAN - RADIOLOGY/IMAGING 07/17/2020 documented in this encounter Results * SCAN - RADIOLOGY/IMAGING (07/17/2020) Anatomical Region Laterality Modality Other us Provider Scanning Final Result documented in this encounter Visit Diagnoses Not on filedocumented in this encounter Additional Health Concerns Infection Onset Date Last Indicated Resolved Time COVID: Suspected 04/04/2021 04/05/2021 04/05/2021 5:53 PM ACCOUNT SERVICES REPRESENTATIVE COVID19 04/05/2021 04/05/2021 04/15/2021 3:05 AM ACCOUNT SERVICES REPRESENTATIVE COVID: Recovered Comment:Added based on recent COVID infection. 04/15/2021 04/16/2021 08/13/2021 3:05 AM C DT documented as of this encounter Care Teams Telegraph And Teletype Operator Relationship Specialty Start Date End Date Carlos James MD [address] [facility] [address] [place] [address] PCP - General 01/28/17 documented as of this encounter
--- OUTSIDE RECORDS SUMMARY | 2025-01-19 09:54 | XMS_ITS | Encounter Summary ---
Author Organization [facility] Facility Care Team Providers Care Pipe Insulator Helper Name Role Phone Carlos James MD Primary Care Provider [phone] Encounter Details Date Type Department Care Team (Latest Contact Info) Description 01/06/2017 Orders Only [facility] ProviderDar MD [address] [place] [address] Social History Tobacco Use Types Packs/Day Years Used Date Smoking Tobacco: Never Assessed Sex and Gender Information Value Date Recorded Sex Assigned at Not on file Legal Sex Male 10:52 AM X RAY PHYSICIAN Gender Identity Not on file Sexual Orientation Not on file documented as of this encounter Plan of Treatment Upcoming Encounters Date Type Department Care Team (Latest Contact Info) Description 01/27/2025 9:11 AM X RAY PHYSICIAN Hospital Encounter [facility] [address] [place] [phone] Feliciano Pérez MD [address] [address] Abnormal stress test; Coronary artery disease involving [place] coronary artery of [place] heart without angina pectoris; SCALES (dyspnea on exertion) 01/27/2025 9:11 AM X RAY PHYSICIAN - 01/27/2025 10:22 AM X RAY PHYSICIAN Surgery [facility] 1 [place] [address] Feliciano Pérez MD [address] [address] LEFT HEART CATHETERIZATION WITH CORONARY ANGIOGRAPHY AND WITH OR WITHOUT LEFT VENTRICULOGRAM [id number] documented as of this encounter Procedures Procedure Name Priority Date/Time Associated Diagnosis Comments PROCEDURE - RESULT 01/06/2017 12 :00 AM CDT documented in this encounter Results * PROCEDURE - RESULT (01/06/2017 12:00 AM CDT) Narrative 01/06/2017 12:00 AM CDT Ordered by an unspecified provider. us Historical Provider Final Res ult documented in this encounter Visit Diagnoses Not on filedocumented in this encounter Additional Health Concerns Infection Onset Date Last Indicated Resolved Time COVID: Suspected 07/29/2019 07/29/2019 08/12/2019 3:05 AM CDT COVID: Suspected 04/04/2021 04/05/2021 04/05/2021 5:53 PM X RAY PHYSICIAN COVID19 04/05/2021 04/05/2021 04/15/2021 3:05 AM X RAY PHYSICIAN COVID: Recovered Comment:Added based on recent COVID infection. 04/15/2021 04/16/2021 08/13/2021 3:05 AM C DT documented as of this encounter Care Teams Pipe Insulator Helper Relationship Specialty Start Date End Date Carlos James MD [address] [facility] [place] [address] PCP - General 01/28/17 documented as of this encounter
--- OUTSIDE RECORDS SUMMARY | 2025-01-19 12:54 | XMS_ITS | Encounter Summary ---
Author Organization [facility] Facility Care Team Providers Care Manager Store Name Role Phone Carlos James MD Primary Care Provider [phone] Encounter Details Date Type Department Care Team (Latest Contact Info) Description 01/06/2017 Orders Only [facility]IN[facility] ProviderDar MD [address] [place] [address] Social History Tobacco Use Types Packs/Day Years Used Date Smoking Tobacco: Never Assessed Sex and Gender Information Value Date Recorded Sex Assigned at Not on file Legal Sex Male 10:52 AM REPAIRER SASH AND DOOR Gender Identity Not on file Sexual Orientation Not on file documented as of this encounter Plan of Treatment Upcoming Encounters Date Type Department Care Team (Latest Contact Info) Description 01/27/2025 9:11 AM REPAIRER SASH AND DOOR Hospital Encounter [facility] [address] [place] [phone] Feliciano Pérez MD [address] [address] Abnormal stress test; Coronary artery disease involving sax[place] coronary artery of sax[place] heart without angina pectoris; SCALES (dyspnea on exertion) 01/27/2025 9:11 AM REPAIRER SASH AND DOOR - 01/27/2025 10:22 AM REPAIRER SASH AND DOOR Surgery [facility] 1 [place] [address] Feliciano Pérez MD [address] [address] LEFT HEART CATHETERIZATION WITH CORONARY ANGIOGRAPHY AND WITH OR WITHOUT LEFT VENTRICULOGRAM [address] documented as of this encounter Procedures Procedure [...] COVID: Suspected 04/04/2021 04/05/2021 04/05/2021 5:53 PM REPAIRER SASH AND DOOR COVID19 04/05/2021 04/05/2021 04/15/2021 3:05 AM REPAIRER SASH AND DOOR COVID: Recovered Comment:Added based on recent COVID infection. 04/15/2021 04/16/2021 08/13/2021 3:05 AM C DT documented as of this encounter Care Teams Manager Store Relationship Specialty Start Date End Date Carlos James MD [address] [facility] [place] [address] PCP - General 01/28/17 documented as of this encounter
--- OUTSIDE RECORDS SUMMARY | 2025-01-19 12:54 | XMS_ITS | Encounter Summary ---
Author Organization [facility] Address [address] [place] [address] Phone Care Team Providers Care Tunnel Elastic Operator Lockstitch Name Role Phone Carlos James MD Primary Care Provider [phone] Encounter Details Date Type Department Care Team (Late st Contact Info) Description 01/18/2025 Results Follow-Up [facility] Cardiology [address] [facility] [address] [place] [address] Josh Guzman MD [address] [facility] [address] [place], [place] [phone] Basic metabolic panel, CBC with auto differential [...] on file Legal Sex Male 10:52 AM AUTOMATIC BEADING LATHE OPERATOR Gender Identity Not on file Sexual Orientation Not on file documented as of this encounter Plan of Treatment Upcoming Encounters Date Type Department Care Team (Latest Contact Info) Description 01/27/2025 9:11 AM AUTOMATIC BEADING LATHE OPERATOR Hospital Encounter [facility] [place] 1 [place] [address] Feliciano Pérez MD [address] [address] Abnormal stress test; Coronary artery disease involving [place] coronary artery of [place] heart without angina pectoris; SCALES (dyspnea on exertion) 01/27/2025 9:11 AM AUTOMATIC BEADING LATHE OPERATOR - 01/27/2025 10:22 AM AUTOMATIC BEADING LATHE OPERATOR Surgery [facility] Vascular [address] [address] Feliciano Pérez MD [address] [address] LEFT HEART CATHETERIZATION WITH CORONARY ANGIOGRAPHY AND WITH OR WITHOUT LEFT VENTRICULOGRAM [address] documented as of this encounter Visit Diagnoses Not on filedocumented in this encounter Care Teams Tunnel Elastic Operator Lockstitch Relationship Specialty Start Date End Date Carlos James MD [address] [address] PCP - General 01/28/17 documented as of this encounter
--- OUTSIDE RECORDS SUMMARY | 2025-01-19 12:54 | XMS_ITS | Encounter Summary ---
Author Organization [facility] Address [address] [place] [address] Phone Care Team Providers Care Fur Farmer Name Role Phone Carlos James MD Primary Care Provider [phone] Encounter Details Date Type Department Care Team [...] on file Legal Sex Male 10:52 AM BRAND DESIGNER Gender Identity Not on file Sexual Orientation Not on file documented as of this encounter Progress Notes * Pattie Geller RN - 01/17/2025 11:59 PM CST Avail for review in [facility]. D DESIGNER documented in this encounter Plan of Treatment Upcoming Encounters Date Type Department Care Team (Latest Contact Info) Description 01/27/2025 9:11 AM BRAND DESIGNER Hospital Encounter [facility] Heart [facility] Vascular [place] 1 [place] [address] Feliciano Pérez MD [address] [address] Abnormal stress test; Coronary artery disease involving [place] coronary artery of [place]it[place] heart without angina pectoris; SCALES (dyspnea on exertion) 01/27/2025 9:11 AM BRAND DESIGNER - 01/27/2025 10:22 AM BRAND DESIGNER Surgery [facility] Vascular [address] [phone] Feliciano Pérez MD [address] [facility] [address] [place] [address] LEFT HEART CATHETERIZATION WITH CORONARY ANGIOGRAPHY AND WITH OR WITHOUT LEFT VENTRICULOGRAM [id number] documented as of this encounter Procedures Procedure Name Priority Date/Time Associated Diagnosis Comments SCAN - LABS 01/17/2025 documented in this encounter Results * SCAN - LABS (01/17/2025) us Provider Scanning Final Result documented in this encounter Visit Diagnoses Not on filedocumented in this encounter Care Teams Fur Farmer Relationship Specialty Start Date End Date Carlos James MD [address] [facility] [address] [place] [address] PCP - General 01/28/17 documented as of this encounter
--- OUTSIDE RECORDS SUMMARY | 2025-01-19 12:54 | XMS_ITS | Encounter Summary ---
Author Organization [facility] Address [address] [place] [address] Phone Care Team Providers Care Microsoft Exchange Architect Name Role Phone Carlos James MD Primary Care Provider [phone] Encounter Details Date Type Department Care Team (Late st Contact Info) Description 12/08/2024 Results Follow-Up [facility] [address] [facility] Advanced Medicine 8th [place] [address] [place] [address] Josh Guzman MD [address] [facility] [address] [place] [address] Transthoracic Echo (TTE) Complete W Doppler/CF, NM [...] on file Legal Sex Male 10:52 AM SECRETARY TO THE VICE PRESIDENT Gender Identity Not on file Sexual Orientation [...] were in June, then I would recommend [facility] given his symptoms of SOB with minimal [...] (Latest Contact Info) Description 01/27/2025 9:11 AM SECRETARY TO THE VICE PRESIDENT Hospital Encounter [facility] 1 [place] [address] Feliciano Pérez MD [address] [place] [address] Abnormal stress test; Coronary artery disease involving [place] coronary artery of [place] heart without angina pectoris; SCALES (dyspnea on exertion) 01/27/2025 9:11 AM SECRETARY TO THE VICE PRESIDENT - 01/27/2025 10:22 AM SECRETARY TO THE VICE PRESIDENT Surgery [facility] 1 [facility] [place] [address] Feliciano Pérez MD [address] [place] [address] LEFT HEART CATHETERIZATION WITH CORONARY ANGIOGRAPHY AND WITH OR WITHOUT LEFT VENTRICULOGRAM [address] documented as of this encounter Visit Diagnoses Not on filedocumented in this encounter Care Teams Microsoft Exchange Architect Relationship Specialty Start Date End Date Carlos James MD [address] [facility] [address] [place] [address] PCP - General 01/28/17 documented as of this encounter
--- OUTSIDE RECORDS SUMMARY | 2025-01-19 12:54 | XMS_ITS | Encounter Summary ---
Author Organization [facility] Facility Care Team Providers Care Paper Cone Machine Tender Name Role Phone Carlos James MD Primary Care Provider [phone] Encounter Details Date Type Department Care Team (Latest Contact Info) Description 01/15/2017 Orders Only [facility]INCON[facility] ProviderDar MD [address] [place] [address] Social History Tobacco Use Types Packs/Day Years Used Date Smoking Tobacco: Never Assessed Sex and Gender Information Value Date Recorded Sex Assigned at Not on file Legal Sex Male 10:52 AM SOLAR MANAGER Gender Identity Not on file Sexual Orientation Not on file documented as of this encounter Plan of Treatment Upcoming Encounters Date Type Department Care Team (Latest Contact Info) Description 01/27/2025 9:11 AM SOLAR MANAGER Hospital Encounter [facility] and Vascular Center [address] [place] [phone] Feliciano Pérez MD [address] [address] Abnormal stress test; Coronary artery disease involving [place] coronary artery of [place] heart without angina pectoris; SCALES (dyspnea on exertion) 01/27/2025 9:11 AM SOLAR MANAGER - 01/27/2025 10:22 AM SOLAR MANAGER Surgery [facility] 1 [place] [address] Feliciano Pérez MD [address] [address] LEFT HEART CATHETERIZATION WITH CORONARY ANGIOGRAPHY AND WITH OR WITHOUT LEFT VENTRICULOGRAM [address] documented as of this encounter Procedures Procedure Name Priority Date/Time Associated Diagnosis Comments SCAN - PATHOLOGY 01/19/2017 12:0 0 AM SOLAR MANAGER documented in this encounter Results * SCAN - PATHOLOGY (01/19/2017 12:00 AM SOLAR MANAGER) Narrative 01/19/2017 12:00 AM SOLAR MANAGER Ordered by an unspecified provider. us Historical Provider Final Res ult documented in this encounter Visit Diagnoses Not on filedocumented in this encounter Additional Health Concerns Infection Onset Date Last Indicated Resolved Time COVID: Suspected 07/29/2019 07/29/2019 08/12/2019 3:05 AM CDT COVID: Suspected 04/04/2021 04/05/2021 04/05/2021 5:53 PM SOLAR MANAGER COVID19 04/05/2021 04/05/2021 04/15/2021 3:05 AM SOLAR MANAGER COVID: Recovered Comment:Added based on recent COVID infection. 04/15/2021 04/16/2021 08/13/2021 3:05 AM C DT documented as of this encounter Care Teams Paper Cone Machine Tender Relationship Specialty Start Date End Date Carlos James MD [address] [facility] [place] [address] PCP - General 01/28/17 documented as of this encounter
--- OUTSIDE RECORDS SUMMARY | 2025-01-19 12:54 | XMS_ITS | Encounter Summary ---
Author Organization [facility] Facility Care Team Providers Care Polystyrene Molding Machine Tender Name Role Phone Carlos James MD Primary Care Provider [phone] Encounter Details Date Type Department Care Team (Latest Contact Info) Description 02/11/2018 Orders Only [facility] CLINCONV ProviderDar MD [address] [place], [place] [phone] Social History Tobacco Use Types Packs/Day Years Used Date Smoking Tobacco: Never Smokeless Tobacco: Never Sex and Gender Information Value Date Recorded Sex Assigned at Not on file Legal Sex Male 10:52 AM BED CONTROL SPECIALIST Gender Identity Not on file Sexual Orientation Not on file documented as of this encounter Plan of Treatment Upcoming Encounters Date Type Department Care Team (Latest Contact Info) Description 01/27/2025 9:11 AM BED CONTROL SPECIALIST Hospital Encounter [facility] Center [address] [place] [phone] Feliciano Pérez MD [address] [place] [address] Abnormal stress test; Coronary artery disease involving [place] coronary artery of [place] heart without angina pectoris; SCALES (dyspnea on exertion) 01/27/2025 9:11 AM BED CONTROL SPECIALIST - 01/27/2025 10:22 AM BED CONTROL SPECIALIST Surgery [facility] 1 [place] [address] Feliciano Pérez MD [address] [place] [address] LEFT HEART CATHETERIZATION WITH CORONARY ANGIOGRAPHY AND WITH OR WITHOUT LEFT VENTRICULOGRAM [address] documented as of this encounter Procedures Procedure Name Priority Date/Time Associated Diagnosis Comments PROCEDURE - RESULT 02/15/2018 12 :00 AM BED CONTROL SPECIALIST documented in this encounter Results * PROCEDURE - RESULT (02/15/2018 12:00 AM BED CONTROL SPECIALIST) Narrative 02/15/2018 12:00 AM BED CONTROL SPECIALIST Ordered by an unspecified provider. Historical Provider Final Res ult documented in this encounter Visit Diagnoses Not on filedocumented in this encounter Additional Health Concerns Infection Onset Date Last Indicated Resolved Time COVID: Suspected 07/29/2019 07/29/2019 08/12/2019 3:05 AM CDT COVID: Suspected 04/04/2021 04/05/2021 04/05/2021 5:53 PM BED CONTROL SPECIALIST COVID19 04/05/2021 04/05/2021 04/15/2021 3:05 AM BED CONTROL SPECIALIST COVID: Recovered Comment:Added based on recent COVID infection. 04/15/2021 04/16/2021 08/13/2021 3:05 AM C DT documented as of this encounter Care Teams Polystyrene Molding Machine Tender Relationship Specialty Start Date End Date Carlos James MD [address] [facility] [place] [address] PCP - General 01/28/17 documented as of this encounter
--- OUTSIDE RECORDS SUMMARY | 2025-01-19 12:55 | XMS_ITS | Clinical Summary ---
Author Organization [facility] Address [address] [facility] [place] [address] Care Team Providers Care Fruit Shipper Name Role Phone Carlos James MD Primary Care Provider [phone] Allergies No known active allergies Medications syringe [...] test 01/10/2025 Coronary artery disease invo lving marshall coronary artery of marshall heart without angina pectoris 01/10/2025 SCALES (dyspnea [...] carb diet and follow up with the pile header on annual basis. Assessment & Plan (09/29/2024 7:14 AM CDT): Hemoglobin A1c was 6.8. Continue metformin and low carb diet and follow up with the pile header on annual basis. Assessment & Plan (06/30/2024 10:46 AM CDT): Hemoglobin A1c was 6.8. Continue metformin and low carb diet and follow up with the pile header on annual basis. Assessment & Plan (06/25/2024 9:04 AM CDT): Continue with POCT glucose monitoring and low-dose sliding scale insulin Assessment & Plan (06/24/2024 5:50 PM CDT): Continue with POCT glucose monitoring and low-dose sliding scale insulin Assessment & Plan (04/01/2024 9:57 AM TRANSCRIBER): Hemoglobin A1c is 7.4. Patient said that his sugar readings run on average below 130 most of the time. Will continue with current dose of metformin. Encouraged to watch his diet and cut down in the calorie intake. Continue to have annual eye exam. Trigger finger of left thumb 02/11/2023 Trigger little finger of left hand 12/29/2022 Assessment & Plan (04/01/2024 9:53 AM TRANSCRIBER): Patient with trigger finger of the left [...] study Assessment & Plan (04/01/2022 9:21 AM TRANSCRIBER): Patient has numbness in the right hand consistent with carpal tunnel syndrome. I recommended nerve conduction study but he declined. I told him to try wrist brace and if the symptoms get worse or if he changes his mind we can proceed with the EMG- ENG Glenohumeral arthritis, left 11/05/2021 Shoulder arthritis 09/02/2021 Overview (09/02/2021): Added automatically from request for surgery [id number] Assessment & Plan (09/26/2021 8:09 AM CDT): [...] doctor Assessment & Plan (04/23/2022 5:19 PM TRANSCRIBER): Oral surgery referral Assessment & Plan (06/04/2021 [...] interested in surgical intervention. He is on [place] for chronic pain. He likes to proceed [...] Lexapro Assessment & Plan (04/01/2024 7:35 AM TRANSCRIBER): Controlled on Lexapro Assessment & Plan (09/29/2023 7:34 AM CDT): Controlled on Lexapro Assessment & Plan (06/30/2023 7:28 AM CDT): Controlled on Lexapro Assessment & Plan (10/07/2022 7:38 AM CDT): Controlled on Lexapro Assessment & Plan (07/01/2022 7:50 AM CDT): Controlled on Lexapro Assessment & Plan (04/23/2022 5:20 PM TRANSCRIBER): Patient will be started back on Lexapro 10 mg daily. Has no suicidal ideations. BuSpar will be stopped. Assessment & Plan (04/01/2022 9:22 AM TRANSCRIBER): Stable without medications. He is on BuSpar for anxiety. Assessment & Plan (09/26/2021 12:01 PM CDT): Stop Trintellix slowly and will start him on Lexapro 20 mg daily and he will call us in 1 month for persistent symptoms Assessment & Plan (06/28/2021 8:06 AM CDT): Controlled on Trintellix Assessment & Plan (03/29/2021 11:23 AM TRANSCRIBER): Controlled on Trintellix Assessment & Plan (12/28/2020 [...] 1 day duration. He was evaluated by pile header recently and the evaluation was normal according [...] . Assessment & Plan (04/01/2024 7:35 AM TRANSCRIBER): Controlled on current medications. Continue low-fat diet. [...] . Assessment & Plan (03/31/2023 8:22 AM TRANSCRIBER): Controlled on current medications. Continue low-fat diet. [...] . Assessment & Plan (04/01/2022 9:21 AM TRANSCRIBER): Controlled on current medications. Continue low-fat diet. Will continue to monitor . Assessment & Plan (12/30/2021 8:03 AM CDT): Controlled on current medications. Continue low-fat diet. Will continue to monitor . Assessment & Plan (06/28/2021 8:05 AM CDT): Controlled on current medications. Continue low-fat diet. Will continue to monitor . Assessment & Plan (03/29/2021 11:23 AM TRANSCRIBER): Advised to take his medications on daily [...] . Assessment & Plan (03/29/2020 8:06 AM TRANSCRIBER): Controlled on current medications. Continue low-fat diet. Will continue to monitor . Assessment & Plan (09/28/2019 9:08 AM CDT): Controlled on current medications. Continue low-fat diet. Will continue to monitor . Assessment & Plan (06/29/2019 9:21 AM CDT): Controlled on current medications. Continue low-fat diet. Will continue to monitor . Rib pain on left side 03/08/2019 Assessment & Plan (03/08/2019 9:04 AM TRANSCRIBER): The patient complains of pain on the [...] 03/08/2019 Assessment & Plan (03/08/2019 9:05 AM TRANSCRIBER): The patient has pain in the right [...] follow-up Assessment & Plan (04/01/2022 8:06 AM TRANSCRIBER): No change in the size of pulmonary nodules on CT in January 2022 Assessment & Plan (12/30/2021 11:54 AM CDT): Will order CT of the lungs again Assessment & Plan (09/26/2021 12:00 PM CDT): Will obtain CT of the chest for further evaluation Assessment & Plan (03/29/2021 11:23 AM TRANSCRIBER): Pulmonary nodule was stable in July 2020 [...] 2019 Assessment & Plan (03/30/2019 11:56 AM TRANSCRIBER): Pulmonary nodule on CT of the chest [...] 08/05/2018 Assessment & Plan (04/01/2024 9:53 AM TRANSCRIBER): Patient with recurrent symptoms of trigger finger [...] Asymptomatic Assessment & Plan (04/01/2024 7:35 AM TRANSCRIBER): Asymptomatic Assessment & Plan (12/29/2022 8:05 AM CDT): Asymptomatic Assessment & Plan (09/27/2020 9:32 AM CDT): Asymptomatic Assessment & Plan (03/29/2020 8:06 AM TRANSCRIBER): Asymptomatic Assessment & Plan (09/28/2019 9:07 AM [...] shoulders and knees. He is maintained on [place] with good relief Assessment & Plan (12/28/2019 9:20 AM CDT): Patient has a chronic pain in his back and shoulders and knees. He is maintained on [place] with good relief Assessment & Plan (03/30/2019 11:55 AM TRANSCRIBER): Continue current pain medication Assessment & Plan (12/30/2018 9:09 AM CDT): The patient has a chronic pain and he is maintained on [place] with good relief Assessment & Plan (09/27/2018 7:51 PM CDT): The patient has a chronic pain in different joints of his body and he is currently on [place] p.r.n. With good relief Assessment & Plan (06/29/2018 12:54 PM CDT): The patient is maintained on [place] with relatively good relief and the patient is compliant with the medication. History of aortic valve repl acement with bioprosthetic valve 07/16/2015 Assessment & Plan (12/31/2023 7:45 AM CDT): Managed by the human development professor Assessment & Plan (06/30/2023 7:28 AM CDT): Managed by the human development professor Assessment & Plan (03/31/2023 8:22 AM TRANSCRIBER): Managed by the human development professor Assessment & Plan (12/29/2022 8:05 AM CDT): Managed by the human development professor Assessment & Plan (07/01/2022 7:49 AM CDT): Managed by the human development professor Assessment & Plan (06/28/2021 8:05 AM CDT): Managed by the human development professor Assessment & Plan (12/28/2020 9:14 AM CDT): Patient is followed by the human development professor Assessment & Plan (09/27/2020 9:32 AM CDT): Followed by the human development professor Assessment & Plan (06/28/2020 8:33 AM CDT): Asymptomatic and followed by the human development professor Assessment & Plan (12/28/2019 9:20 AM CDT): Status post aortic valve replacement and followed by the surgeon Assessment & Plan (06/29/2019 9:20 AM CDT): Status post aortic valve replacement. He is followed by the human development professor Assessment & Plan (03/30/2019 11:55 AM TRANSCRIBER): Continue aspirin and the patient is followed by the human development professor Assessment & Plan (09/27/2018 7:50 PM CDT): The patient is asymptomatic and followed by the human development professor History of aortic stenosis 07/10/2015 Assessment & [...] results Assessment & Plan (03/31/2023 8:22 AM TRANSCRIBER): Patient is on testosterone injections with good results Assessment & Plan (12/29/2022 8:06 AM CDT): Patient is on testosterone injections with good results Assessment & Plan (10/07/2022 7:38 AM CDT): Patient is on testosterone injections with good results Assessment & Plan (07/01/2022 7:49 AM CDT): Patient is on testosterone injections with good results Assessment & Plan (04/01/2022 8:04 AM TRANSCRIBER): Controlled on testosterone injections Assessment & Plan (12/30/2021 8:04 AM CDT): Controlled on testosterone injections Assessment & Plan (09/26/2021 8:09 AM CDT): Controlled on testosterone injections Assessment & Plan (03/29/2021 11:22 AM TRANSCRIBER): Controlled on testosterone injections Assessment & Plan (12/28/2020 9:12 AM CDT): Controlled on testosterone injections Assessment & Plan (09/27/2020 9:33 AM CDT): Testosterone level is normal. The patient uses testosterone injections. He has more energy with the injections. Assessment & Plan (06/28/2020 8:32 AM CDT): Patient is maintained on testosterone injections with improvement in his symptoms Assessment & Plan (03/29/2020 8:06 AM TRANSCRIBER): Patient is maintained on testosterone injections with [...] Xarelto Assessment & Plan (04/01/2024 7:35 AM TRANSCRIBER): No focal deficit. He is maintained on [...] 7:13 AM CDT): Patient is maintained on [place] with good relief Assessment & Plan (06/30/2024 7:38 AM CDT): Patient is maintained on [place] with good relief Assessment & Plan (04/01/2024 7:35 AM TRANSCRIBER): Patient is maintained on [place] with good relief Assessment & Plan (12/31/2023 7:45 AM CDT): Patient is maintained on [place] with good relief Assessment & Plan (06/30/2023 12:51 PM CDT): Patient is maintained on [place] with good relief Assessment & Plan (03/31/2023 8:22 AM TRANSCRIBER): Patient is maintained on [place] with good relief Assessment & Plan (12/29/2022 8:05 AM CDT): Patient is maintained on [place] with good relief Assessment & Plan (10/07/2022 7:37 AM CDT): Patient is maintained on [place] with good relief Assessment & Plan (07/01/2022 7:49 AM CDT): Patient is maintained on [place] with good relief Assessment & Plan (04/01/2022 8:04 AM TRANSCRIBER): Continue [place] p.r.n. Assessment & Plan (09/26/2021 12:02 PM CDT): Continue [place] Assessment & Plan (06/28/2021 8:05 AM CDT): Continue [place] p.r.n. Assessment & Plan (03/29/2021 11:23 AM TRANSCRIBER): Continue [place] as needed Assessment & Plan (12/28/2020 9:13 AM CDT): Controlled on [place] Assessment & Plan (09/27/2020 9:32 AM CDT): The patient will continue with [place] on as needed basis Assessment & Plan (06/28/2020 8:34 AM CDT): Controlled on [place] Assessment & Plan (06/29/2019 9:21 AM CDT): Continue current medications Assessment & Plan (03/08/2019 9:07 AM TRANSCRIBER): Controlled on [place] Assessment & Plan (09/28/2018 9:40 AM CDT): The patient has a chronic back pain and he is on [place] with good relief. Assessment & Plan (06/29/2018 12:55 PM CDT): Continue [place] Hypertension, essential 07/11/2013 Assessment & Plan (01/04/2025 [...] monitor Assessment & Plan (03/31/2023 8:22 AM TRANSCRIBER): Continue current medications. Discussed low-salt diet. Discussed [...] monitor Assessment & Plan (04/01/2022 8:03 AM TRANSCRIBER): Continue current medications. Discussed low-salt diet. Discussed [...] monitor Assessment & Plan (03/29/2020 8:06 AM TRANSCRIBER): Continue current medications. Discussed low-salt diet. Discussed [...] monitor Assessment & Plan (03/30/2019 11:55 AM TRANSCRIBER): Continue current medications. Discussed low-salt diet. Discussed exercise on regular basis. Will continue to monitor Assessment & Plan (03/08/2019 9:07 AM TRANSCRIBER): Continue current medications. Discussed low-salt diet. Discussed [...] Department Care Team Description 01/18/2025 Results Follow-Up [facility] [place] [place] [facility] [address] [facility] [address] [place] [address] Katharine Guzman MD Basic metabolic panel, CBC with auto differential 01/18/2025 Nurse Triage [facility] Internal Medicine [address] [facility] [address] [place] [phone] Carlos James MD 01/17/2025 Orders Only [facility] Scanning, Provider 01/10/2025 10:10 AM CDT - 01/10/2025 11:59 PM CDT Hospital Encounter [facility] [address] [place] [address] Discharge Disposition: Discharge to home or self care 01/10/2025 10:09 AM CDT - 01/10/2025 11:59 PM CDT Hospital Encounter [facility] [address] [place] [address] Discharge Disposition: Discharge to home or self care 01/10/2025 10:09 AM CDT - 01/10/2025 11:59 PM CDT Hospital Encounter [facility] [address] [place] [address] Discharge Disposition: Discharge to home or self care 01/10/2025 10:09 AM CDT - 01/10/2025 11:59 PM CDT Hospital Encounter [facility] [address] [place] [address] Coronary artery disease involving marshall coronary artery of marshall heart without angina pectoris; SCALES (dyspnea on exertion) Discharge Disposition: Discharge to home or self care 01/10/2025 10:09 AM CDT - 01/10/2025 11:59 PM CDT Hospital Encounter [facility] [address] [place] [address] Coronary artery disease involving marshall coronary artery of marshall heart without angina pectoris; SCALES (dyspnea on exertion) Discharge Disposition: Discharge to home or self care 01/10/2025 Telephone [facility] [place] [place] [facility] [address] [place] [address] 8th [place] [address] [place] [address] Katharine Guzman MD Stress Test Results 01/04/2025 8:30 AM CDT Office Visit [facility] Internal Medicine [address] [place] [phone] Carlos James MD Benign prostatic hyperplasia without lower urinary tract symptoms (Primary Dx); Dyslipidemia; History of CVA (cerebrovascular accident); Hypertension, essential; Hypogonadism in male; Persistent atrial fibrillation (HCC); Pulmonary nodules; Type 2 diabetes mellitus with chronic kidney disease, without long-term current use of insulin, unspecified CKD stage (HCC); Prostate cancer screening 12/08/2024 Results Follow-Up [facility] [place] [place] [facility] [address] [place] [address] 8th [place] [address] [place] [address] Katharine Guzman MD Transthoracic Echo (TTE) Complete W Doppler/CF, NM MPI SPECT (Rest and/or Stress) Multiple Studies 12/05/2024 7:00 AM CDT - 12/05/2024 11:59 PM CDT Hospital Encounter [facility] Lab [address] [facility] [address] [place] [address] Coronary artery disease involving marshall coronary artery of marshall heart without angina pectoris; SCALES (dyspnea on exertion) Discharge Disposition: Discharge to home or self care 11/10/2024 Telephone [facility] Medicine Cardiology [address] [facility] 8th [place] [address] [place] [address] Katharine Guzman MD Scheduling Testing/Treatment 11/03/2024 8:30 AM CDT Office Visit [facility] [place] [place] [facility] [address] [facility] 8th [place] [address] [place] [address] Paul Peng MD Persistent atrial fibrillation (HCC) (Primary Dx) 11/03/2024 Results Follow-Up [facility] Elect[facility] Lab [address] [place] [address] Paul Peng MD ECG 12 lead from [...] ATRIAL FIBRILLATION (A-FIB) VIA PULMONARY VEIN ISOLATION [id number]; Surgeon: Paul Peng MD; Location: [facility]; Service: Cardiovascular; Laterality: N/A; Medical devices from this surgery are in the Medical Devices section. CARDIAC ELECTROPHYSIOLOGY PROCEDURE 06/24/2024 N/A Procedure: ABLATION ATRIAL FIBRILLATION ADDITIONAL LINE OR FOCI (+) [id number]; Surgeon: Paul Peng MD; Location: [facility]; Service: Cardiovascular; Laterality: N/A; Medical [...] on file Legal Sex Male 10:52 AM TRANSCRIBER Gender Identity Not on file Sexual Orientation [...] (Latest Contact Info) Description 01/27/2025 9:11 AM TRANSCRIBER Hospital Encounter [facility] [address] [place] [address] Feliciano Pérez MD [address] [facility] [address] [place] [address] Abnormal stress test; Coronary artery disease involving marshall coronary artery of marshall heart without angina pectoris; SCALES (dyspnea on exertion) 01/27/2025 9:11 AM TRANSCRIBER - 01/27/2025 10:22 AM TRANSCRIBER Surgery [facility] [address] [place] [address] Feliciano Pérez MD [address] [address] LEFT HEART CATHETERIZATION WITH CORONARY ANGIOGRAPHY AND WITH OR WITHOUT LEFT VENTRICULOGRAM [address] Health Maintenance Due Date Last Done Comments [...] 65+ Discontinued Medical Devices Implanted Type Area Trim Line Worker Device Identifier Shelf Expiration Date Model / Serial / Lot [employer] Vascade Mvp 6-12fr Venous Closure [id number] - [id number] - [id number] Implanted:Qty: 1 on 06/24/2024 by Simon Chaudhary MD at [facility] Collagen Right: Femoral Vein [employer] 05/12/2026 [id number] U / [id number] / [id number] [employer] Device Vascular Closure Vascade Mvp Xl 10-12fr Venous Strl 800-1012xl - [id number] - [id number] Implanted:Qty: 1 on 06/24/2024 by Simon Chaudhary MD at [facility] Collagen Right: Femoral Vein [employer] 02/23/2026 800-1012XL / [id number] / [id number] [employer] Simplex P Radiopaque Full Dose Cement Bone Sterile 6191-1-010 - [id number] Implanted:Qty: 1 on 11/05/2021 by Derek Diaz MD at [facility] [employer] [id number] 02/13/2024 6191-1-010 / / Depuy Orth[employer] Global Ap 52mm [place] Glen[place] Peg Fixation Premieron [id number] - [id number] Implanted:Qty: 1 on 11/05/2021 by Derek Diaz MD at [facility] [employer] [id number] / / Depuy [employer] Head Humeral Shoulder Stemless Size 52 Global Icon [id number] - [id number] Implanted:Qty: 1 on 11/05/2021 by Derek [place] MD at [facility] [employer] [id number] / / Depuy [employer] Implant Shoulder [place] Plate Stemless Size 52 Global Icon [id number] - [id number] Implanted:Qty: 1 on 11/05/2021 by Derek Diaz MD at [facility] [employer] [id number] / / Procedures Procedure Name Priority Date/Time Associated Diagnosis Comments CBC WITH AUTO DIFFERENTIAL Routine 01/17/2025 1:15 PM TRANSCRIBER Abnormal stress test Coronary artery disease involving marshall coronary artery of marshall heart without angina pectoris SCALES (dyspnea on exertion) Pre-procedure lab exam BASIC METABOLIC PANEL Routine 01/17/2025 1:15 PM TRANSCRIBER Abnormal stress test Coronary artery disease involving marshall coronary artery of marshall heart without angina pectoris SCALES (dyspnea on exertion) Pre-procedure lab exam SCAN - LABS 01/17/2025 NM MPI SPECT (REST AND/OR STRESS) MULTIPLE STUDIES Schedule Routine, Read Routine (OP Routine) 01/10/2025 1:33 PM CDT Coronary artery disease involving marshall coronary artery of marshall heart without angina pectoris SCALES (dyspnea on exertion) STRESS TEST FOR DUAL READ Schedule Routine, Read Routine (OP Routine) 01/10/2025 11:17 AM CDT Coronary artery disease involving marshall coronary artery of marshall heart without angina pectoris SCALES (dyspnea on exertion) TRANSTHORACIC ECHO (TTE) COMPLETE W DOPPLER/CF WO CONTRAST Routine 12/05/2024 8:08 AM CDT Coronary artery disease involving marshall coronary artery of marshall heart without angina pectoris SCALES (dyspnea on exertion) ECG 12-LEAD Routine 11/03/2024 8:31 AM CDT Persistent atrial fibrillation (HCC) HEMOGLOBIN A1C Routine 08/13/2024 10:25 AM CDT Hyperglycemia LIPID PANEL Routine 08/13/2024 10:25 AM CDT Dyslipidemia Hyperglycemia HM DIABETES EYE EXAM Routine 07/21/2024 PSA SCREEN Routine 03/07/2024 11:32 AM TRANSCRIBER Prostate cancer screening ALBUMIN CREATININE RATIO, URINE Routine 08/29/2023 10:40 AM CDT Controlled type 2 diabetes mellitus without complication, without long-term current use of insulin (HCC) COLONOSCOPY Routine 05/02/2022 HEPATITIS C ANTIBODY Routine 03/22/2021 9:26 AM TRANSCRIBER Encounter for hepatitis C screening test for low risk patient from Last 3 Months or Most Recently Relevant to Health Maintenance Results * (ABNORMAL) CBC with auto differential (01/17/2025 1:15 PM TRANSCRIBER) WBC 14.8(H) 3.4 - 10.8 x10E3/uL [facility] [...] [facility] - 01 Blood 01/17/2025 1:15 PM TRANSCRIBER 01/17/2025 Narrative [facility] - 01/18/2025 7:09 AM TRANSCRIBER Performed at: - [facility] [address], [place], [place] [id number] Toy Designer: Nicholas Nice PhD, Phone: [phone] us Katharine Guzman MD LAB BLOOD ORDERABLES Final Re sult [facility] - 01 * (ABNORMAL) Basic metabolic panel (01/17/2025 1:15 PM TRANSCRIBER) Glucose 134(H) 70 - 99 mg/dL [facility] [...] [facility] - 01 Blood 01/17/2025 1:15 PM TRANSCRIBER 01/17/2025 Narrative [facility] - 01/18/2025 7:09 AM TRANSCRIBER Performed at: 01 - [id number] Toy Designer: Nicholas Nice PhD, Phone: [phone] us Katharine Guzman MD LAB BLOOD ORDERABLES Final [facility] - 01 * SCAN - LABS [...] and electrocardiographic results documented by the supervising human development professor is available in the [facility] electronic medical record. Standard myocardial perfusion images [...] and electrocardiographic results documented by the supervising human development professor is available in the [facility] electronic medical record. Standard myocardial perfusion images [...] AM CDT Narrative 01/10/2025 2:15 PM CDT [facility] [place] [address] [place] [address] LEXISCAN STRESS Patient Name: MARIBELL BUSTILLOS M : 1960 (64y 4m) Sex: M Study Date: 01/10/2025 10:50:00 AM Ht(Inch): 69 Wt(Lb): 215 BSA: 2.18 Tech: Location: [facility] Order Provider: KATHARINE GUZMAN BMI: 31.75 Ref Provider: KATHARINE GUZMAN PROCEDURES: Stress Report: Cardiovascular Stress Test performed in conjunction with Myocardial Perfusion Imaging (MPI) with SPECT at rest and post Regadenoson (Lexiscan) infusion. Results of MPI are reported separately. Protocol: NW Lexiscan. INDICATIONS: I25.10 Atherosclerotic heart disease of marshall coronary artery without angina pectoris and R06.09 [...] Note Kris Tafoya MD PhD - 01/10/2025 [facility] [place] [address] [place] [address] LEXISCAN STRESS Patient Name: MARIBELL BUSTILLOSEd : 1960 (64y 4m) Sex: M Study Date: 01/10/2025 10:50:00 AM Ht(Inch): 69 Wt(Lb): 215 BSA: 2.18 Tech: Location: [facility] Order Provider: KATHARINE GUZMAN BMI: 31.75 Ref Provider: KATHARINE GUZMAN PROCEDURES: Stress Report: Cardiovascular Stress Test performed in conjunction withMyocardial Perfusion Imaging (MPI) with SPECT at rest and post Regadenoson (Lexiscan)infusion. Results of MPI are reported separately. Protocol: NW Lexiscan. INDICATIONS: I25.10 Atherosclerotic heart disease of marshall coronary artery withoutangina pectoris and R06.09 Other [...] AM CDT Narrative 12/05/2024 8:23 AM CDT [facility] [place] [address] [place] [address] Transthoracic Echocardiographic Report Patient Name: MARIBELL BUSTILLOS M : 1960 (64y 3m) Sex: M Study Date: 12/05/2024 07:09:44 AM Ht(Inch): 69 Wt(Lb): 233.91 BSA: 2.27 Site Project Manager: Kilo Pinto RDCS Location: [facility] Order Provider: KATHARINE GUZMAN Heart Rate: 64 [...] cm LV Thickness Ratio 1.1 LVOT Peak Jermeie 0.7 m/s [ 0.7 - 1.1 ] [...] 21.00 - 61.00 ] MV E Peak Jeremie 0.6 m/s [ 0.6 - 1.3 ] [...] Procedure Note Gerald Nguyen MD - 12/05/2024 [facility] Cardiac [place] [address] Transthoracic Echocardiographic Report Patient Name: MARIBELL BUSTILLOS M : 1960 (64y 3m) Sex: M Study Date: 12/05/2024 07:09:44 AM Ht(Inch): 69 Wt(Lb): 233.91 BSA: 2.27 Site Project Manager: Kilo Pinto RDCS Location: [facility] Order Provider:KATHARINE GUZMAN Heart Rate: 64 BMI: [...] LA Length 4C 4.82 cm MV Decel Gmty938.81 msec [ 104.00 - 258.00 ] LA [...] - 2024 7:08 AM CDT Performed at: [address] [place] [id number] Toy Designer: Nicholas Nice PhD, Phone: [phone] Carlos James MD LAB BLOOD ORDERABLES Final Result Performing Organization Address [facility] de Phone Number [facility] - 01 [...] - 2024 7:08 AM CDT Performed at: [address] [place] [id number] Toy Designer: Nicholas Nice PhD, Phone: [phone] Carlos James MD LAB BLOOD ORDERABLES Final Result Performing Organization Address [facility] Co de Phone Number [facility] - 01 * HM DIABETES EYE EXAM (07/21/2024) SCRIBED DIABETIC DILATED EYE EXAM Normal Historical Provider HEALTH MAINTENANCE Final Result * PSA screen (03/07/2024 11:32 AM TRANSCRIBER) PSA 0.3 0.0 - 4.0 ng/mL [facility] - 01 Comment: Ross ECLIA methodology. According to the [employer], Serum PSA should decrease and [...] malignant disease. Blood 03/07/2024 11:3 2 AM TRANSCRIBER 03/07/2024 Narrative [facility] - 03/08/2024 9:08 AM TRANSCRIBER Performed at: [facility] [id number] Toy Designer: Nicholas Nice PhD, Phone: [phone] Carlos James MD LAB BLOOD ORDERABLES Final Result [facility] - 01 * Albumin Creatinine Ratio, [...] - 08/30/2023 7:07 AM CDT Performed at: [facility] [id number] Toy Designer: Nicholas Nice PhD, Phone: [phone] Carlos James MD LAB URINE ORDERABLES Final Result Performing Organization Address [facility] de Phone Number [facility] - * (ABNORMAL) Colonoscopy (05/02/2022) Anatomical Region Laterality Modality Other Impressions 05/02/2022 Repeat in 5 years Historical Provider MD ENDOSCOPY PROCEDURES Carlota l Result * Hepatitis C antibody (03/22/2021 9:26 AM TRANSCRIBER) Hep C Ab <0.1 0.0 - 0.9 s/co ratio [facility] - Comment: Negative: < 0.8 Indeterminate: 0.8 - 0.9 Positive: > 0.9 The CDC recommends that a positive HCV antibody result be followed up with a HCV Nucleic Acid Amplification test (727581). Blood specimen (specimen) 03/22/2021 9:26 AM TRANSCRIBER 03/22/2021 Narrative [facility] - 03/23/2021 7:08 AM TRANSCRIBER Performed at: [facility] [id number] Toy Designer: Nicholas Nice PhD, Phone: [phone] Carlos James MD LAB MICROBIOLOGY - GENERAL ORDERABLES Final Result Performing Organization Address [facility] de Phone Number [facility] - from Last 3 Months or Most Recently Relevant to Health Maintenance Insurance [facility] [employer] [facility]/PPO Address: [address] [address] [place] [address] [facility] [employer] [facility] [employer]O Address: [address] [address] [place] [address] [facility] [employer] [facility] [employer]O Address: [address] [address] [place] [address] MEDICARE Advance Directives For more information, please contact: [phone] * Full Code (Latest Code Status on File) Date Activated Date Inactivated Comments 06/24/2024 5:40 PM 06/25/2024 1:38 PM * Full Code Date Activated Date Inactivated Comments 11/05/2021 1:17 PM 11/06/2021 3:56 PM * Full Code Date Activated Date Inactivated Comments 11/11/2019 9:13 AM 11/11/2019 1:34 PM Care Teams Fruit Shipper Relationship Specialty Start Date End Date Carlos James MD [address] [facility] [address] [address] PCP - General 01/28/17
--- OUTSIDE RECORDS SUMMARY | 2025-01-19 12:55 | XMS_ITS | Encounter Summary ---
Author Organization [facility] Healthcare Address [address] [place] [address] Care Team Providers Care Tank Furnace Operator Name Role Phone Carlos James MD Primary Care Provider [phone] Reason for Visit * Reason Onset Date Comments Weakness - Generalized 01/18/2025 Encounter Details Date Type Department Care Team (Late st Contact Info) Description 01/18/2025 Nurse Triage [facility] Medical [facility] Internal Medicine [address] [place] [phone] Carlos James MD [address] [place] [phone] Social History Tobacco Use Types Packs/Day [...] on file Legal Sex Male 10:52 AM TUBE OPERATOR Gender Identity Not on file Sexual Orientation Not on file documented as of this encounter Miscellaneous Notes * Telephone Encounter - Yuliana Paz MA - 01/18/2025 9:52 AM CST Call Back Caller???s Concern: Isa said ambulance is taking him to [facility]. Does message need to be routed? Yes-FYI Only OPERATOR * Telephone Encounter - Digna Francisco RN [...] on file. Protocols Used Weakness (Generalized) and [id number]-[id number]-CX OPERATOR * Telephone Encounter - Digna Francisco RN - 01/18/2025 8:19 AM CST Regarding: listless , weakness, ----- Message from Casper R sent at 01/18/2025 8:19 AM TUBE OPERATOR ----- Symptom Based Call Chief Complaint(s): listless [...] message need to be routed? 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; SCALES (dyspnea on exertion) 01/27/2025 9:11 AM TUBE OPERATOR - 01/27/2025 10:22 AM TUBE OPERATOR Surgery [facility] [address] [phone] Feliciano Pérez MD [address] [address] LEFT HEART CATHETERIZATION WITH CORONARY ANGIOGRAPHY AND WITH OR WITHOUT LEFT VENTRICULOGRAM [id number] documented as of this encounter Visit Diagnoses Not on filedocumented in this encounter Care Teams Tank Furnace Operator Relationship Specialty Start Date End Date Carlos James MD [address] [address] PCP - General 01/28/17 documented as of this encounter
--- OUTSIDE RECORDS SUMMARY | 2025-01-19 12:55 | XMS_ITS | Encounter Summary ---
Author Organization [facility] Address [address] [place] [address] Phone Care Team Providers Care Visitor Service Assistant Name Role Phone Carlos James MD Primary Care Provider [phone] Encounter Details Date Type Department Care Team [...] on file Legal Sex Male 10:52 AM CONFERENCE PLANNER Gender Identity Not on file Sexual Orientation Not on file documented as of this encounter Plan of Treatment Upcoming Encounters Date Type Department Care Team (Latest Contact Info) Description 01/27/2025 9:11 AM CONFERENCE PLANNER Hospital Encounter [facility] [address] [place] [address] Feliciano Pérez MD [address] [facility] [address] [place] [address] Abnormal stress test; Coronary artery disease involving absentee-shawnee coronary artery 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 angina pectoris; SCALES (dyspnea on exertion) 01/27/2025 9:11 AM CONFERENCE PLANNER - 01/27/2025 10:22 AM CONFERENCE PLANNER Surgery [facility] [address] [facility] [place] [address] Feliciano Pérez MD [address] [facility] [address] [place] [address] LEFT HEART CATHETERIZATION WITH CORONARY ANGIOGRAPHY AND WITH OR WITHOUT LEFT VENTRICULOGRAM [id number] documented as of this encounter Procedures Procedure [...] COVID: Suspected 04/04/2021 04/05/2021 04/05/2021 5:53 PM CONFERENCE PLANNER COVID19 04/05/2021 04/05/2021 04/15/2021 3:05 AM CONFERENCE PLANNER COVID: Recovered Comment:Added based on recent COVID infection. 04/15/2021 04/16/2021 08/13/2021 3:05 AM C DT documented as of this encounter Care Teams Visitor Service Assistant Relationship Specialty Start Date End Date Carlos James MD [address] [facility] [address] [place] [address] [place] [id number] PCP - General 01/28/17 documented as of this encounter
== END 2025-01-18 18:16 | disposition home or self-care (01) ==
PROVIDERS: Emergency Provider Student in an Organized Health Care Education/Training Program
DX: R53.1 Weakness (principal); D72.829 Elevated white blood cell count, unspecified; E87.1 Hypo-osmolality and hyponatremia; D64.9 Anemia, unspecified; R74.01 Elevation of levels of liver transaminase levels; I48.92 Unspecified atrial flutter; I48.91 Unspecified atrial fibrillation; K52.9 Noninfective gastroenteritis and colitis, unspecified; Z20.822 Contact with and (suspected) exposure to COVID-19; I10 Essential (primary) hypertension; I25.10 Atherosclerotic heart disease of native coronary artery without angina pectoris; Z95.1 Presence of aortocoronary bypass graft; Z96.612 Presence of left artificial shoulder joint; Z95.3 Presence of xenogenic heart valve; Z79.01 Long term (current) use of anticoagulants; Z79.899 Other long term (current) drug therapy; I45.9 Conduction disorder, unspecified; I44.7 Left bundle-branch block, unspecified
CPT/HCPCS: 36415; 71046; 80053; 81001; 82550; 83735; 83880; 84439; 84443; 84481; 84484; 85025; 85610; 85730; 87493; 87637; 93005; 96361; 96374; 99284; J1163; J7040